=== PATIENT | male | born 1955 | race Caucasian/White ===

== ENCOUNTER 2016-08-31 22:13 | Emergency (ER) | payer SELFPAY ==
[2016-08-31 22:35] VITALS: O2SAT 98
--- NOTE | 2016-08-31 22:58 | ERPHSYRPT ---
- History of Present Illness Time Seen by Provider: 08/31/16 22:52 Source: patient Exam Limitations: no limitations Patient Subjective Stated Complaint: pt had to be pysically removed [place] where he was pounding on his "old ladies"door at the scene the pt had a pbt of 276 which requires medial clearance to go to penitentiary -pt is awake and alert and cooperative states he does not want anything done Triage Nursing Assessment: pt is awake and alert and able to answer questions - he is sitting on the side of the bed Physician History: This 60-year-old white male with history of high blood pressure he was found to be [facility] doors [facility] the [facility] and noted to have a blood alcohol of 276. Patient states he's been drinking all days he states he has not been using any illicit drugs he states he is not having any pain anywhere he states he has not injured himself. Patient is stating that he does not want any tests and he wants to be released from this hospital. Patient did have a breath alcohol of 276. Patient is alert oriented 3 he knows where he is who he is he has no focal deficits. Past medical history includes high blood pressure cyst on his tailbone. Social history includes alcohol use. Timing/Duration: today Severity: moderate Modifying Factors: Improves With: other (drinking all day.) Associated Symptoms: No nausea, No vomiting, No abdominal pain, No shortness of breath, No heartburn, No diaphoresis, No cough, No chills, No chest pain, No fever, No headaches, No loss of appetite, No malaise, No rash, No syncope, No seizure, No weakness Allergies/Adverse Reactions: Penicillins Allergy (Verified 08/31/16 22:44) Home Medications: No Reportable Medications [No Reported Medications] 08/31/16 [History] Hx Tetanus, Diphtheria Vaccination/Date Given: Yes Hx Influenza Vaccination/Date Given: No Hx Pneumococcal Vaccination/Date Given: No Immunizations Up to Date: No - Review of Systems Constitutional: No Fever, No Chills Eyes: No Symptoms Ears, Nose, & Throat: No Symptoms Respiratory: No Cough, No Dyspnea Cardiac: No Chest Pain, No Edema, No Syncope Abdominal/Gastrointestinal: No Abdominal Pain, No Nausea, No Vomiting, No Diarrhea Genitourinary Symptoms: No Dysuria Musculoskeletal: No Back Pain, No Neck Pain Skin: No Rash Neurological: No Symptoms Psychological: Alcohol Abuse, No Drug Abuse, No Anxiety, No Depression, No Suicidal Ideations, No Homicidal Ideations, No Emotional Lability, No Hallucinations, No Memory Loss, No Mood Changes Endocrine: No Symptoms All Other Systems: Reviewed and Negative - Past Medical History Pertinent Past Medical History: Yes Cardiac History: Hypertension - Past Surgical History Past Surgical History: Yes Other Surgical History: cyst on tailbone - Social History Smoking Status: Current every day smoker Exposure to second hand smoke: Yes Drug Use: none Patient Lives Alone: No - Nursing Vital Signs Nursing Vital Signs: Initial Vital Signs Temperature 97.7 F Temperature Source Oral Pulse Rate 120 Respiratory Rate 16 Blood Pressure [Right Arm] 190/100 Pain Intensity 0 - Physical Exam General Appearance: no apparent distress, alert Eye Exam: PERRL/EOMI, eyes nml inspection Ears, Nose, Throat Exam: normal ENT inspection, TMs normal, pharynx normal, moist mucous membranes Neck Exam: normal inspection, non-tender, supple, full range of motion Respiratory Exam: normal breath sounds, lungs clear, No respiratory distress Cardiovascular Exam: regular rate/rhythm, normal heart sounds, normal peripheral pulses Gastrointestinal/Abdomen Exam: soft, normal bowel sounds, No tenderness, No mass Back Exam: normal inspection, normal range of motion, No CVA tenderness, No vertebral tenderness Extremity Exam: normal inspection, normal range of motion, pelvis stable Neurologic Exam: alert, oriented x 3, cooperative, normal mood/affect, nml cerebellar function, nml station & gait, sensation nml, No motor deficits Skin Exam: normal color Lymphatic Exam: No adenopathy SpO2 Interpretation: normal (98%) SpO2: 98 Oxygen Delivery: Room Air - Course Nursing assessment & vital signs reviewed: Yes - Progress Progress: improved Progress Note: 08/31/16 22:55 This is a 60-year-old white male with history of high blood pressure he states he's been drinking all days he was apparently pounding on doors [place] the [place] he was found to have a breath alcohol of 276. Patient is in no apparent distress he is alert he is oriented 3. He states he has no pain anywhere he does not want any further evaluation. Will go ahead and discharge patient to police custody. - Departure Time of Disposition: 22:56 Departure Disposition: Home (patient released to police custody) Clinical Impression: Alcohol intoxication Qualifiers: Complication of substance-induced condition: uncomplicated Qualified Code(s): F10.120 - Alcohol abuse with intoxication, uncomplicated Condition: Fair Critical Care Time: No Instructions: Alcohol Abuse and Alcoholism Additional Instructions: Return home. Plenty of fluids. Follow-up with your family doctor. Return for acute distress or for severe symptoms. He should have your blood pressure checked in the next several weeks as it was elevated today.
[2016-09-01 01:36] VITALS: BP 130/100; PULSE 100
== END 2016-08-31 23:17 | disposition home or self-care (01) ==
LOC: ED 22:13
DX: F10.120 Alcohol abuse with intoxication, uncomplicated (principal)
CPT/HCPCS: 99281

== ENCOUNTER 2018-04-11 07:58 | Emergency (ER) | payer OTHER ==
[2018-04-11] MEDS ORDERED: BENADRYL 50 MG/ML ONE (08:10)
[2018-04-11] MEDS ORDERED: EPINEPHRINE ABBOJECT 1 MG ONE (08:10)
[2018-04-11] MEDS ORDERED: Sodium Chloride 0.9% 1000 ML 1,000 ML ONE ×2 (08:10→12:40)
[2018-04-11] MEDS ORDERED: EPINEPHRINE 1MG/ML AMP IM ONE ×2 (08:11→11:59)
[2018-04-11] MEDS ORDERED: BENADRYL 50 MG/ML IV ONE (08:12)
[2018-04-11] MEDS ORDERED: Pepcid 20 MG VIAL IV ONE ×2 (08:13→08:28)
[2018-04-11] MEDS ORDERED: solu-MEDROL 125 MG IV ONE ×2 (08:14→10:15)
[2018-04-11] MEDS ORDERED: EPINEPHRINE 1MG/ML AMP ONE ×2 (08:19→11:53)
[2018-04-11] MEDS ORDERED: solu-MEDROL 125 MG ONE ×2 (08:28→10:18)
[2018-04-11] MEDS ORDERED: Sodium Chloride 0.9% 1000 ML 1,000 ML IV SCH (08:30)
--- NOTE | 2018-04-11 08:45 | ERPHSYRPT ---
- History of Present Illness Time Seen by Provider: 04/11/18 08:10 Source: patient, family Patient Subjective Stated Complaint: Pt states "I woke up at 5 am like this." Triage Nursing Assessment: Pt alert and oriented X 3, skin pwd. Pt ambulates with an upright steady gait, able to speak in clear full sentences. PT in no apparent respiratory distress. The left side of pt face and lips are extremely swollen. Physician History: 62 y/o white male with h/o htn presents with sudden onset of swelling of left face and lips this am. no respiratory issues and no stridor. pt is on lisinopril. occurred one other time in the past but resolved on its own. no rash and no itching. no known allergies. no known new exposures. Timing/Duration: today Severity: moderate Associated Symptoms: No nausea, No vomiting, No abdominal pain, No cough Allergies/Adverse Reactions: No Known Drug Allergies Allergy (Unverified 04/11/18 08:15) Home Medications: Lisinopril [Zestril] 10 mg PO DAILY 04/11/18 [History] Hx Tetanus, Diphtheria Vaccination/Date Given: No Hx Influenza Vaccination/Date Given: No Hx Pneumococcal Vaccination/Date Given: No Immunizations Up to Date: Yes - Review of Systems Constitutional: No Symptoms Eyes: No Symptoms Ears, Nose, & Throat: Mouth Swelling, Other (facial and lip swelling), No Nose Congestion, No Nose Discharge Respiratory: No Symptoms, No Cough, No Dyspnea, No Stridor, No Wheezing Cardiac: No Symptoms, No Chest Pain, No Palpitations, No Syncope Abdominal/Gastrointestinal: No Symptoms, No Abdominal Pain, No Nausea, No Vomiting Genitourinary Symptoms: No Symptoms, No Dysuria, No Frequency, No Hematuria Musculoskeletal: No Symptoms Skin: No Symptoms Neurological: No Symptoms Psychological: No Symptoms Endocrine: No Symptoms Hematologic/Lymphatic: No Symptoms Immunological/Allergic: No Symptoms All Other Systems: Reviewed and Negative - Past Medical History Pertinent Past Medical History: Yes Neurological History: No Pertinent History ENT History: No Pertinent History Cardiac History: Hypertension Respiratory History: No Pertinent History Endocrine Medical History: No Pertinent History Musculoskeletal History: No Pertinent History GI Medical History: No Pertinent History History: No Pertinent History Psycho-Social History: No Pertinent History Male Reproductive Disorders: No Pertinent History - Past Surgical History Past Surgical History: Yes Neuro Surgical History: No Pertinent History Cardiac: No Pertinent History Respiratory: No Pertinent History Gastrointestinal: No Pertinent History Genitourinary: No Pertinent History Musculoskeletal: No Pertinent History Male Surgical History: No Pertinent History Other Surgical History: cyst on tailbone - Social History Smoking Status: Current every day smoker How long have you smoked: years Exposure to second hand smoke: Yes Drug Use: none Patient Lives Alone: No - Nursing Vital Signs Nursing Vital Signs: Initial Vital Signs Temperature 98.8 F 04/11/18 08:03 Pulse Rate 100 H 04/11/18 08:03 Respiratory Rate 04/11/18 08:03 Blood Pressure 155/103 04/11/18 08:03 O2 Sat by Pulse Oximetry 100 04/11/18 08:03 Pain Scale Pain Intensity 0 - Physical Exam General Appearance: mild distress, alert, anxiety Eye Exam: PERRL/EOMI, eyes nml inspection Ears, Nose, Throat Exam: tonsillar exudate, other (swelling and edematous left side of face including left side of lips.) Neck Exam: normal inspection, non-tender, supple, other (no stridor) Respiratory Exam: normal breath sounds, lungs clear, airway intact, No chest tenderness, No respiratory distress, No accessory muscle use, No rhonchi, No wheezing, No stridor Cardiovascular Exam: regular rate/rhythm, normal heart sounds, normal peripheral pulses Gastrointestinal/Abdomen Exam: soft, normal bowel sounds, No tenderness, No guarding Rectal Exam: not done Back Exam: normal inspection, normal range of motion, No CVA tenderness, No vertebral tenderness Extremity Exam: normal inspection, normal range of motion, pelvis stable Neurologic Exam: alert, oriented x 3, cooperative, head of science II-XII nml as tested Skin Exam: normal color, warm Lymphatic Exam: No adenopathy SpO2 Interpretation: normal SpO2: 100 Oxygen Delivery: Room Air - Course Nursing assessment & vital signs reviewed: Yes Ordered Tests: Active Orders 24 hr Category Date Time Status IV Insertion STAT Care 04/11/18 08:13 Active Medication Summary Generic Name Dose Route Start Last Admin Trade Name Freq PRN Reason Stop Dose Admin Sodium Chloride 1,000 mls @ 100 mls/hr 04/11/18 08:30 04/11/18 08:22 Sodium Chloride 0.9% 1000 Ml IV 05/11/18 08:29 100 mls/hr .Q10H DASHA Administration Discontinued Medications Generic Name Dose Route Start Last Admin Trade Name Vivian PRN Reason Stop Dose Admin Diphenhydramine HCl Confirm 04/11/18 08:10 Benadryl 50 Mg/Ml Administered 04/11/18 08:11 Dose 50 mg .ROUTE .STK-MED ONE Diphenhydramine HCl 50 mg 04/11/18 08:12 04/11/18 08:19 Benadryl 50 Mg/Ml IV 04/11/18 08:13 50 mg STAT ONE Administration Epinephrine HCl Confirm 04/11/18 08:10 Epinephrine Abboject 1 Mg Administered 04/11/18 08:11 Dose 1 mg .ROUTE .STK-MED ONE Epinephrine HCl 0.3 mg 04/11/18 08:11 04/11/18 08:21 Epinephrine 1mg/Ml Amp IM 04/11/18 08:12 0.3 mg STAT ONE Administration Epinephrine HCl Confirm 04/11/18 08:19 Epinephrine 1mg/Ml Amp Administered 04/11/18 08:20 Dose 1 mg .ROUTE .STK-MED ONE Famotidine 40 mg 04/11/18 08:13 04/11/18 08:29 Pepcid 20 Mg Vial IV 04/11/18 08:14 40 mg STAT ONE Administration Famotidine Confirm 04/11/18 08:28 Pepcid 20 Mg Vial Administered 04/11/18 08:29 Dose 40 mg IV .STK-MED ONE Sodium Chloride Confirm 04/11/18 08:10 Sodium Chloride 0.9% 1000 Ml Administered 04/11/18 08:11 Dose 1,000 mls @ ud .ROUTE .STK-MED ONE Methylprednisolone Sodium Succinate 125 mg 04/11/18 08:14 04/11/18 08:29 Solu-Medrol 125 Mg IV 04/11/18 08:15 125 mg STAT ONE Administration Methylprednisolone Sodium Succinate Confirm 04/11/18 08:28 Solu-Medrol 125 Mg Administered 04/11/18 08:29 Dose 125 mg .ROUTE .STK-MED ONE - Progress Progress: improved Counseled pt/family regarding: diagnosis, need for follow-up - Departure Time of Disposition: 08:52 Departure Disposition: Home Clinical Impression: Angioedema of lips Condition: Stable Critical Care Time: No Referrals: LITA HAYES, GENARO [Primary Care Provider] - Additional Instructions: add benadryl 25mg orally 3 times daily for 4 days. follow up with your primary doctor today to discuss your Lisinopril medications Prescriptions: Prednisone 10 mg [Deltasone 10 mg] 10 mg PO TID #12 tablet Ranitidine HCl [Zantac] 150 mg PO BID #10 tablet
[2018-04-11 12:15] LABS: BASOPHIL % 0.4 % (0.0-0.4); Basophil (Absolute #) 0.02 (0-0.4); Eosinophil (Absolute #) 0.05 (0-0.5); Granulocyte Absolute (ANC) 2.97 (1.4-6.9); Granulocytes % 59.6 % (36.0-66.0); Hematocrit 35.9 % (42-50); Hemoglobin 13.2 gm/dl (12.5-18.0); Lymphocyte (Absolute #) 1.17 (1.0-4.6); Lymphocytes % 23.4 % (24.0-44.0); Mean Corpuscular Hemoglobin 37.5 pg (26-32); Mean Corpuscular Hgb Concent. 36.8 g/dl (32-36); Mean Platelet Volume 10.7 fl (6-9.5); Monocyte (Absolute #) 0.78 (0.0-1.3); Monocytes % 15.6 % (0.0-12.0); Platelet Count 130 K/mm3 (150-450); Red Blood Count 3.52 M/mm3 (4.1-5.6); Red Cell Distribution Width 13.8 % (11.5-14.0)
[2018-04-11] MEDS ORDERED: Versed 50 MG/ 10 Ml MDV*** 50 MG in Sodium Chloride 0.9% 250 ML 240 ML IV PRN (12:20)
[2018-04-11] MEDS ORDERED: VERSED 5 MG/5 ML IV ONE ×2 (12:31→12:32)
[2018-04-11] MEDS ORDERED: Quelicin Fliptop 200 MG/10 ML IV ONE (12:32)
[2018-04-11 12:33] LABS: ALBUMIN 4.6 g/dL (3.5-5.0); ANION GAP 15.7 MEQ/L (5-15); BILIRUBIN,TOTAL 0.9 mg/dL (0.2-1.3); Calcium 9.7 mg/dL (8.4-10.2); Creatinine 1 1.42 mg/dL (0.66-1.25); Potassium 4.3 mmol/L (3.5-5.1); Total Protein 7.9 g/dL (6.3-8.2)
[2018-04-11] MEDS ORDERED: Zemuron 100 MG/10 ML IV ONE ×2 (12:33→13:44)
[2018-04-11 12:47] LABS: A-aADO2 84; ABG HEMOGLOBIN 13.4; ABG POTASSIUM 4.3 (3.5-5.1); ABG SITE RIGHT RADIAL; ALLEN TEST OK? YES; ARTERIAL BLD GAS O2 SATURATION 100.5 % (95-100); ARTERIAL BLD GAS TIDAL VOLUME 550 cc; ARTERIAL BLOOD GAS BASE EXCESS -4.8 (-2.0-2.0); ARTERIAL BLOOD GAS FIO2 100 %; ARTERIAL BLOOD GAS PCO2 44 mmHg (35-45); ARTERIAL BLOOD GAS PEEP 5 cmH2O; ARTERIAL BLOOD GAS PO2 574 mmHg (75-100); CARBOXYHEMOGLOBIN 2.4 % THgb (0.0-6.9); HCO3- 21.6 (22-28); HGB O2 SAT 96.8 g/dF (94-100); Methhemoglobin 1.2 % (1.4-1.5); paO2 pAO1 0.87
--- NOTE | 2018-04-11 12:50 | XRAY ---
Indication: Tube placement. Comparison: None Portable chest demonstrates endotracheal tube tip 5 cm above the dariusz and NG tube tip in the distal esophagus just above the GE junction. Remaining heart and lungs normal with incidental calcified granulomas. Bony thorax intact with mild degenerative changes.
[2018-04-11 13:56] VITALS: BP 146/90; PULSE 117; O2SAT 99
[2018-04-11 14:17] LABS: Slide Review 1 YES
== END 2018-04-11 13:58 | disposition short-term general hospital (02) ==
LOC: ED 07:58
DX: T78.3XXA Angioneurotic edema, initial encounter (principal); Z79.899 Other long term (current) drug therapy
CPT/HCPCS: 31500; 36000; 36415; 36600; 51702; 71045; 80053; 82375; 82803; 85025; 86160; 94002; 94799; 96372; 96374; 96375; 96376; 99285; 99291; 99292; J0171; J0330; J1200; J2250; J2930

== ENCOUNTER 2021-06-25 14:15 | Emergency (ER) | payer MEDICARE ==
[2021-06-25 15:11] LABS: Absolute Neutrophil Ct (ANC) 6.78 (1.4-6.9); Basophil (Absolute #) 0.04 (0-0.4); Eosinophil % 1.5 % (0.00-5.0); Eosinophil (Absolute #) 0.14 (0-0.5); Hematocrit 26.6 % (42-50); Hemoglobin 8.1 gm/dl (12.5-18.0); Lymphocyte (Absolute #) 1.31 (1.0-4.6); Lymphocytes % 13.8 % (24.0-44.0); Mean Cell Volume 77.6 fl (78-100); Mean Corpuscular Hemoglobin 23.6 pg (26-32); Mean Corpuscular Hgb Concent. 30.5 g/dl (32-36); Mean Platelet Volume 9.2 fl (7.5-11.0); Monocytes % 12.7 % (0.0-12.0); Neutrophil % 71.6 % (36.0-66.0); Platelet Count 504 K/mm3 (150-450); Red Blood Count 3.43 M/mm3 (4.1-5.6); Red Cell Distribution Width 20.6 % (11.5-14.0); White Blood Count 9.5 K/mm3 (4.0-10.5)
[2021-06-25 15:21] LABS: ALBUMIN 3.1 g/dL (3.5-5.0); ALKALINE PHOSPHATASE 382 U/L (38-126); ANION GAP 16.5 MEQ/L (5-15); BLOOD UREA NITROGEN 8 mg/dL (9-20); CHLORIDE 102 mmol/L (98-107); Calcium 8.1 mg/dL (8.4-10.2); Carbon Dioxide 20 mmol/L (22-30); Creatinine 1 1.11 mg/dL (0.66-1.25); EST GLOMERULAR FILTRATION RATE > 60.0 ML/MIN; Glucose 142 mg/dL (74-106); LIPASE 271 U/L (23-300); Potassium 3.1 mmol/L (3.5-5.1); SGOT/AST 71 U/L (17-59); SGPT/ALT 13 U/L (0-50); SODIUM 136 mmol/L (137-145); Total Protein 6.8 g/dL (6.3-8.2)
--- NOTE | 2021-06-25 15:24 | ERPHSYRPT ---
- History of Present Illness Time Seen by Provider: 06/25/21 14:30 Historian: patient Exam Limitations: no limitations Patient Subjective Stated Complaint: Pt states "My head hurts, my bellyhurts and I cannot pee." Triage Nursing Assessment: Pt presented alert and oriented ax 3, skin pwd Pt ambulates with a slow gait, able to speak in clear full setences. Pt abdomen is distended, firm and tender Physician History: Patient is a 65-year-old male with a history of alcoholism. Patient drinks half a pint to a pint of whiskey per day. Patient states he has been doing this "all my life". Patient states that his abdomen has gotten progressively distended over the past month. Urine output has decreased over the past 2 days. No trauma. No fever. No history of liver dysfunction. Symptoms are progressive. Symptoms are moderate in intensity. No specific worsening or improving factors. Patient's abdominal pain described as a vague pressure sensation that is generalized. No focal or differentiate abdominal pain. Patient has a significant cardiovascular history for which she sees Dr. Cynthia Kaplan Father the referred patient to our ED today for evaluation of his progressive abdominal distention and decreased urine output. Timing/Duration: week(s) (4 weeks.) Activities at Onset: none Quality: aching, pressure Abdominal Pain Onset Location: generalized abdomen Pain Radiation: no radiation Severity of Pain-Max: moderate Severity of Pain-Current: mild Modifying Factors: Improves With: nothing Associated Symptoms: other (Decreased urine output.) Previous symptoms: no prior history Allergies/Adverse Reactions: lisinopril Allergy (Severe, Verified 06/25/21 14:32) Swelling Penicillins Allergy (Severe, Verified 06/25/21 14:32) Swelling Home Medications: Amlodipine Besylate 10 mg PO DAILY 06/25/21 [History] Carvedilol 3.125 mg [Coreg 3.125 MG] 3.125 mg PO BID 06/25/21 [History] Clopidogrel Bisulfate 75 mg [PLAVIX 75 MG Tablet] 75 mg PO DAILY 06/25/21 [History] Rivaroxaban [Xarelto] 2.5 mg PO DAILY 06/25/21 [History] Hx Tetanus, Diphtheria Vaccination/Date Given: No Hx Influenza Vaccination/Date Given: No Hx Pneumococcal Vaccination/Date Given: No Immunizations Up to Date: Yes Travel Risk - International Travel Have you traveled outside of the country in past 3 weeks: No - Coronavirus Screening Are you exhibiting any of the following symptoms?: No Close contact with a COVID-19 positive Pt in past 14-21 Days: No - Vaccine Status Have you recieved a Covid-19 vaccination: No - Review of Systems Constitutional: No Symptoms, No Fever, No Chills Eyes: No Symptoms Ears, Nose, & Throat: No Symptoms Respiratory: No Symptoms, No Cough, No Dyspnea Cardiac: No Symptoms, No Chest Pain, No Edema, No Syncope Abdominal/Gastrointestinal: No Symptoms, No Abdominal Pain, No Nausea, No Vomiting, No Diarrhea Genitourinary Symptoms: No Symptoms, No Dysuria Musculoskeletal: No Symptoms, No Back Pain, No Neck Pain Skin: No Symptoms, No Rash Neurological: No Symptoms, No Dizziness, No Focal Weakness, No Sensory Changes Psychological: No Symptoms Endocrine: No Symptoms Hematologic/Lymphatic: No Symptoms Immunological/Allergic: No Symptoms All Other Systems: Reviewed and Negative - Past Medical History Pertinent Past Medical History: Yes Neurological History: No Pertinent History ENT History: No Pertinent History Cardiac History: Hypertension Respiratory History: Bronchitis, Other Endocrine Medical History: No Pertinent History Musculoskeletal History: Fractures GI Medical History: No Pertinent History History: No Pertinent History Psycho-Social History: No Pertinent History Male Reproductive Disorders: No Pertinent History Other Medical History: HX OF FX TOES. SX - PILONIDAL CYST. HX OF HTN. WAS ON MEDS WHICH PATIENT STATES THE ANGIOEDEMA WAS A RESULT. SINCE BEING HOME FROM HOSPITAL AND OFF MEDS BLOOD PRESSURE HAS BEEN FINE - 120/80 AT [facility]. - Past Surgical History Past Surgical History: Yes Neuro Surgical History: No Pertinent History Cardiac: No Pertinent History Respiratory: No Pertinent History Gastrointestinal: No Pertinent History Genitourinary: No Pertinent History Musculoskeletal: No Pertinent History Male Surgical History: No Pertinent History Other Surgical History: cyst on tailbone - Social History Smoking Status: Current every day smoker How long have you smoked: years Exposure to second hand smoke: Yes Drug Use: marijuana Patient Lives Alone: No - Nursing Vital Signs Nursing Vital Signs: Initial Vital Signs Temperature 97.9 F 06/25/21 14:20 Pulse Rate 97 H 06/25/21 14:20 Respiratory Rate 20 06/25/21 14:20 Blood Pressure 127/89 06/25/21 14:20 O2 Sat by Pulse Oximetry 100 06/25/21 14:20 Pain Scale Pain Intensity 2 - Physical Exam General Appearance: no apparent distress, alert Eye Exam: PERRL/EOMI, eyes nml inspection Ears, Nose, Throat Exam: normal ENT inspection, TMs normal, pharynx normal, moist mucous membranes Neck Exam: normal inspection, non-tender, supple, full range of motion Respiratory Exam: normal breath sounds, chest tenderness, lungs clear, airway intact, No respiratory distress Cardiovascular Exam: regular rate/rhythm, normal heart sounds, normal peripheral pulses Gastrointestinal/Abdomen Exam: soft, tenderness, distention, No mass, No guarding, No pulsatile mass, No hernia Back Exam: normal inspection, normal range of motion, No CVA tenderness, No vertebral tenderness Extremity Exam: normal inspection, normal range of motion, pelvis stable Neurologic Exam: alert, oriented x 3, cooperative, normal mood/affect, nml cerebellar function, sensation nml, No motor deficits Skin Exam: normal color, warm, dry Lymphatic Exam: No adenopathy SpO2 Interpretation: normal SpO2: 100 O2 Delivery: Room Air - Course Nursing assessment & vital signs reviewed: Yes - CT Exams Abdomen/Pelvis CT Interpretation: Tele-radiologist Report (The liver appears relatively small. Hepatic surface worrisome for diffuse hepatocellular disease. Scattered ascites, hepatic mass both kidneys appear relatively small Marked atherosclerotic vascular calcifications.) Ordered Tests: Active Orders 24 hr Category Date Time Status Shah [Catheter-Colwich Shah] STAT Care 06/25/21 14:38 Active IV Insertion STAT Care 06/25/21 14:51 Active ABDOMEN AND PELVIS W CONTRAST [CT] Stat Exams 06/25/21 15:54 Completed CBC W DIFF Stat Lab 06/25/21 14:30 Completed CMP Stat Lab 06/25/21 14:30 Completed CULTURE,URINE Stat Lab 06/25/21 14:51 Received LIPASE Stat Lab 06/25/21 14:30 Completed PROTIME WITH INR Stat Lab 06/25/21 14:30 Completed TROPONIN Q3H Lab 06/25/21 14:30 Completed TROPONIN Q3H Lab 06/25/21 18:46 Completed TROPONIN Q3H Lab 06/25/21 21:00 Ordered TROPONIN Q3H Lab 06/26/21 00:00 Ordered TROPONIN Q3H Lab 06/26/21 03:00 Ordered UA W/RFX UR CULTURE Stat Lab 06/25/21 14:51 Completed Medication Summary Generic Name Dose Route Start Last Admin Trade Name Vivian PRN Reason Stop Dose Admin Ciprofloxacin 500 mg 06/25/21 22:00 06/25/21 18:02 Ciprofloxacin 500 Mg Tablet PO 07/25/21 21:59 500 mg BID DASHA Administration Discontinued Medications Generic Name Dose Route Start Last Admin Trade Name Vivian PRN Reason Stop Dose Admin Potassium Chloride 40 meq 06/25/21 17:37 06/25/21 17:44 Potassium Chloride 10 Meq Tablet PO 06/25/21 17:38 40 meq STAT ONE Administration Potassium Chloride Confirm 06/25/21 17:42 Potassium Chloride 10 Meq Tablet Administered 06/25/21 17:43 Dose 40 meq PO .STRodos [employer] ONE Lab/Rad Data: Laboratory Result Diagrams 06/25/21 14:30 06/25/21 14:30 Laboratory Results 06/25/21 06/25/21 06/25/21 Range/Units 18:46 14:51 14:30 WBC (4.0-10.5) K/mm3 RBC (4.1-5.6) M/mm3 Hgb (12.5-18.0) gm/dl Hct (42-50) % MCV (78-100) fl MCH (26-32) pg MCHC (32-36) g/dl RDW (11.5-14.0) % Plt Count (150-450) K/mm3 MPV (7.5-11.0) fl Gran % (36.0-66.0) % Eos # (Auto) (0-0.5) Absolute Lymphs (auto) (1.0-4.6) Absolute Monos (auto) (0.0-1.3) Lymphocytes % (24.0-44.0) % Monocytes % (0.0-12.0) % Eosinophils % (0.00-5.0) % Basophils % (0.0-0.4) % Absolute Granulocytes (1.4-6.9) Basophils # (0-0.4) PT 15.5 H (9.4-12.5) SECONDS INR 1.31 (0.8-3.0) Sodium (137-145) mmol/L Potassium (3.5-5.1) mmol/L Chloride (98-107) mmol/L Carbon Dioxide (22-30) mmol/L Anion Gap (5-15) MEQ/L BUN (9-20) mg/dL Creatinine (0.66-1.25) mg/dL Estimated GFR ML/MIN Glucose (74-106) mg/dL Calcium (8.4-10.2) mg/dL Total Bilirubin (0.2-1.3) mg/dL AST (17-59) U/L ALT (0-50) U/L Alkaline Phosphatase (38-126) U/L Troponin I < 0.012 (0.000-0.034) ng/mL Serum Total Protein (6.3-8.2) g/dL Albumin (3.5-5.0) g/dL Lipase (23-300) U/L Urine Color YELLOW (YELLOW) Urine Appearance SLIGHTLY CLOUDY (CLEAR) Urine pH 6.0 (5-6) Ur Specific [place] 1.016 (1.005-1.025) Urine Protein 30 (Negative) Urine Ketones TRACE (NEGATIVE) Urine Blood MODERATE (0-5) [place]/ul Urine Nitrite NEGATIVE (NEGATIVE) Urine Bilirubin NEGATIVE (NEGATIVE) Urine Urobilinogen 2 (0-1) mg/dL Ur Leukocyte Esterase MODERATE (NEGATIVE) Urine WBC (Auto) 51-100 (0-5) /HPF Urine RBC (Auto) >101 (0-2) /HPF U Hyaline Cast (Auto) 6-10 (0-2) /LPF U Epithel Cells (Auto) NONE (FEW) /HPF Urine Bacteria (Auto) MODERATE (NEGATIVE) /HPF Urine Mucus (Auto) SLIGHT (NEGATIVE) /HPF Urine Culture Reflexed YES (NO) Urine Glucose NEGATIVE (NEGATIVE) mg/dL 06/25/21 06/25/21 06/25/21 Range/Units 14:30 14:30 14:30 WBC 9.5 (4.0-10.5) K/mm3 RBC 3.43 L (4.1-5.6) M/mm3 Hgb 8.1 L (12.5-18.0) gm/dl Hct 26.6 L (42-50) % MCV 77.6 L (78-100) fl MCH 23.6 L (26-32) pg MCHC 30.5 L (32-36) g/dl RDW 20.6 H (11.5-14.0) % Plt Count 504 H (150-450) K/mm3 MPV 9.2 (7.5-11.0) fl Gran % 71.6 H (36.0-66.0) % Eos # (Auto) 0.14 (0-0.5) Absolute Lymphs (auto) 1.31 (1.0-4.6) Absolute Monos (auto) 1.20 (0.0-1.3) Lymphocytes % 13.8 L (24.0-44.0) % Monocytes % 12.7 H (0.0-12.0) % Eosinophils % 1.5 (0.00-5.0) % Basophils % 0.4 (0.0-0.4) % Absolute Granulocytes 6.78 (1.4-6.9) Basophils # 0.04 (0-0.4) PT (9.4-12.5) SECONDS INR (0.8-3.0) Sodium 136 L (137-145) mmol/L Potassium 3.1 L (3.5-5.1) mmol/L Chloride 102 (98-107) mmol/L Carbon Dioxide 20 L (22-30) mmol/L Anion Gap 16.5 H (5-15) MEQ/L BUN 8 L (9-20) mg/dL Creatinine 1.11 (0.66-1.25) mg/dL Estimated GFR > 60.0 ML/MIN Glucose 142 H (74-106) mg/dL Calcium 8.1 L (8.4-10.2) mg/dL Total Bilirubin 0.50 (0.2-1.3) mg/dL AST 71 H (17-59) U/L ALT 13 (0-50) U/L Alkaline Phosphatase 382 H (38-126) U/L Troponin I < 0.012 (0.000-0.034) ng/mL Serum Total Protein 6.8 (6.3-8.2) g/dL Albumin 3.1 L (3.5-5.0) g/dL Lipase 271 (23-300) U/L Urine Color (YELLOW) Urine Appearance (CLEAR) Urine pH (5-6) Ur Specific [place] (1.005-1.025) Urine Protein (Negative) Urine Ketones (NEGATIVE) Urine Blood (0-5) [place]/ul Urine Nitrite (NEGATIVE) Urine Bilirubin (NEGATIVE) Urine Urobilinogen (0-1) mg/dL Ur Leukocyte Esterase (NEGATIVE) Urine WBC (Auto) (0-5) /HPF Urine RBC (Auto) (0-2) /HPF U Hyaline Cast (Auto) (0-2) /LPF U Epithel Cells (Auto) (FEW) /HPF Urine Bacteria (Auto) (NEGATIVE) /HPF Urine Mucus (Auto) (NEGATIVE) /HPF Urine Culture Reflexed (NO) Urine Glucose (NEGATIVE) mg/dL - Progress Progress: improved Progress Note: Case discussed with Dr. Campos who in light of patient's liver mass and new onset cirrhosis advises transfer to a facility that has gastroenterology and oncology. 06/25/21 17:[address] Michelle [place] [facility]. Plan of care discussed with patient. He agrees to [place] [facility] evaluation and treatment. 06/25/21 18:00 Case discussed with hospitalist at [facility]. We also discussed the case with [facility]. Dr. Fabricio Portillo general surgeon covering GI service. Dr. Portillo defers transfer to hospitalist. We are awaiting return call from hospitalist. Portions of this note were created with voice recognition technology. There may be grammatical, spelling, punctuation or sound alike errors 06/25/21 18:24 Discussed with .: Brian Will see patient in: other Counseled pt/family regarding: lab results, diagnosis, rad results - Departure Departure Disposition: Transfer Clinical Impression: Retrocardiac hiatal hernia, Hepatic granuloma, Liver cirrhosis, Splenic granulomas, Abdominal ascites, Prostate gland calcification, Liver mass, UTI (urinary tract infection), Hypokalemia, Hypocalcemia, Microcytic anemia, Thrombocytosis, Urinary retention Condition: Stable Critical Care Time: No Referrals: LITA HAYES NP [Primary Care Provider] - Follow up/PCP as directed
[2021-06-25 15:37] LABS: INR 1.31 (0.8-3.0); PROTIME 15.5 SECONDS (9.4-12.5)
[2021-06-25 15:48] LABS: Appearance SLIGHTLY CLOUDY (CLEAR); Bacteria MODERATE /HPF (NEGATIVE); Bilirubin NEGATIVE (NEGATIVE); Blood MODERATE Ery/ul (0-5); Glucose NEGATIVE (NEGATIVE); Ketones TRACE (NEGATIVE); Leukocyte Esterase MODERATE (NEGATIVE); Mucus SLIGHT /HPF (NEGATIVE); Nitrite NEGATIVE (NEGATIVE); Protein,Urine Dip 30 (Negative); Specific Gravity 1.016 (1.005-1.025); Urobilinogen 2 mg/dL (0-1); WBC 51-100 /HPF (0-5)
[2021-06-25 15:49] LABS: RBC >101 /HPF (0-2)
--- NOTE | 2021-06-25 17:03 | XRAY ---
Exam: CT of the abdomen and pelvis with IV contrast from 06/25/2021. CTDI: 3.63 mGy Comparison: None. Indication: 65-year-old male with abdominal distention/bloating 1 month; diarrhea. Technique: Post-IV contrast axial images were obtained through the abdomen and pelvis during automated injection of 80 ML's of Isovue 370 contrast material. Reconstructed coronal and sagittal images were created and reviewed. Findings: The visualized lung bases appear clear. There is equivocal evidence of a minimal retrocardiac hiatal hernia with mild concentric wall thickening near the gastroesophageal junction. See axial image #15. The liver appears relatively small. A few scattered hepatic calcified granulomas are seen. There is minor surface irregularity of the liver which may reflect hepatocellular disease such as cirrhosis. Just lateral to the fundus of the gallbladder on axial image #28, there is a subtle oval-shaped region of decreased attenuation which measures +69 Hounsfield units. On sagittal image #37, this measures about 3.3 cm x 2.4 cm in cross section. The attenuation value does not suggest that this represents a simple cyst. This might represent a regenerating nodule. However, several other small space-occupying hepatic mass including malignancy should be considered. The gallbladder is not enlarged. No gallbladder wall thickening or dense calcifications are seen within the gallbladder lumen. The spleen is small and remarkable for multiple calcified splenic granulomas. No significant abnormality of the pancreas or adrenal glands is seen. The right kidney measures about 9.0 cm in length on coronal image #103, and the left kidney measures about 8.9 cm in length on coronal image #99. This appears to be at the lower limits of normal. Both kidneys function on delayed images. No solid renal mass or hydronephrosis is seen. Dense atherosclerotic vascular calcification is seen within the distal abdominal aorta and the iliac arteries. No abdominal aortic aneurysm is seen. There appears to be a bifemoral bypass crossing across the anterior aspect of the lower pelvis. Some surgical clips are also seen within the left groin. I see no evidence of free intraperitoneal air. However, the significant finding is the presence of a moderate to marked amount of scattered ascites within both upper outer quadrants, both paracolic gutters, Morison's pouch on the right, and throughout the pelvis. The bowel does not appear distended. The seminal vesicles appear unremarkable. Calcification within the central aspect of the prostate gland is seen. The urinary bladder is decompressed by a urinary Shah catheter with balloon in the projection of a collapsed urinary bladder. No other pelvic mass or abnormal pelvic lymphadenopathy is seen. The skeleton reveals no acute fracture or aggressive bone process. Mild diffuse degenerative changes are seen throughout the visualized thoracolumbar spine. Impression: 1. The liver appears relatively small and has an uneven hepatic surface worrisome for diffuse hepatocellular disease or cirrhosis. In addition, a moderate to marked amount of scattered ascites is seen throughout the abdomen and pelvis. 2. Within the anterior portion of the inferior aspect of the right hepatic lobe there is a subtle small low-attenuation density which may represent a hepatic mass. This does not represent a cyst. See above. 3. Both kidneys appear relatively small measuring roughly 9 cm in length each. However, both kidneys function. 4. Marked atherosclerotic vascular calcification is seen. I also see evidence of a femoral to femoral bypass graft coursing across the anterior aspect of the lower pelvis. A urinary Shah catheter with balloon is seen within a collapsed urinary bladder. 5. No other acute process is seen within the abdomen or pelvis.
[2021-06-25] MEDS ORDERED: Klor Con 10 MEQ PO ONE ×2 (17:37→17:42)
[2021-06-25] MEDS ORDERED: Cipro 500 MG ONE (18:01)
[2021-06-25 20:15] VITALS: BP 106/79; PULSE 96
[2021-06-25 20:28] VITALS: O2SAT 100
[2021-06-25] MEDS ORDERED: Cipro 500 MG PO SCH (22:00)
== END 2021-06-25 20:30 | disposition short-term general hospital (02) ==
LOC: ED 14:15
DX: N39.0 Urinary tract infection, site not specified (principal); R33.9 Retention of urine, unspecified; K44.9 Diaphragmatic hernia without obstruction or gangrene; K75.3 Granulomatous hepatitis, not elsewhere classified; K70.31 Alcoholic cirrhosis of liver with ascites; N42.0 Calculus of prostate; R16.0 Hepatomegaly, not elsewhere classified; E87.6 Hypokalemia; E83.51 Hypocalcemia; D50.9 Iron deficiency anemia, unspecified; D75.839 Thrombocytosis, unspecified; Z79.01 Long term (current) use of anticoagulants; I10 Essential (primary) hypertension; Z72.0 Tobacco use
CPT/HCPCS: 36000; 36415; 51702; 74177; 80053; 81001; 83690; 84484; 85025; 85610; 87077; 87086; 87186; 99285; A9270-GY

== ENCOUNTER 2021-11-10 22:01 | Emergency (ER) | payer MEDICARE ==
[2021-11-10] MEDS ORDERED: Sodium Chloride 0.9% 1000 ML 1,000 ML IV SCH (22:30)
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
[2021-11-10 22:55] LABS: Appearance CLEAR (CLEAR); Bilirubin NEGATIVE (NEGATIVE); Dipstick done @ ? MAIN LAB; Glucose NEGATIVE (NEGATIVE); Ketones NEGATIVE (NEGATIVE); Nitrite NEGATIVE (NEGATIVE); Ph 6.5 (5-6); Protein,Urine Dip NEGATIVE (Negative); RBC NEGATIVE Ery/ul (0-5); Urobilinogen 0.2 mg/dL (0-1)
[2021-11-10] MEDS ORDERED: Sodium Chloride 0.9% 1000 ML 1,000 ML ONE (23:00)
[2021-11-10 23:17] LABS: WBC NONE SEEN /HPF (0-5)
[2021-11-10 23:18] LABS: Bacteria NONE SEEN /HPF (NEGATIVE); Urine Cultured Indicated? NO
[2021-11-10 23:20] LABS: Absolute Neutrophil Ct (ANC) 3.92 x10^3/uL (1.4-6.9); Basophil (Absolute #) 0.04 x10^3/uL (0-0.4); Eosinophil % 2.1 % (0.00-5.0); Eosinophil (Absolute #) 0.14 x10^3/uL (0-0.5); Hematocrit 27.1 % (42-50); Hemoglobin 8.2 g/dL (12.5-18.0); Lymphocyte (Absolute #) 1.89 x10^3/uL (1.0-4.6); Lymphocytes % 28.5 % (24.0-44.0); Mean Cell Volume 78.3 fL (78-100); Mean Corpuscular Hemoglobin 23.7 pg (26-32); Mean Corpuscular Hgb Concent. 30.3 g/dL (32-36); Mean Platelet Volume 8.9 fL (7.5-11.0); Monocyte (Absolute #) 0.62 x10^3/uL (0.0-1.3); Monocytes % 9.4 % (0.0-12.0); Neutrophil % 59.1 % (36.0-66.0); Platelet Count 149 x10^3/uL (150-450); Red Blood Count 3.46 x10^6/uL (4.1-5.6); White Blood Count 6.6 x10^3/uL (4.0-10.5)
[2021-11-10 23:41] LABS: ALBUMIN 3.5 g/dL (3.5-5.0); ALKALINE PHOSPHATASE 381 U/L (38-126); ANION GAP 18.5 MEQ/L (5-15); BLOOD UREA NITROGEN 11 mg/dL (9-20); CHLORIDE 107 mmol/L (98-107); Calcium 8.6 mg/dL (8.4-10.2); Carbon Dioxide 23 mmol/L (22-30); Creatinine 1 1.07 mg/dL (0.66-1.25); EST GLOMERULAR FILTRATION RATE > 60.0 ML/MIN; Glucose 92 mg/dL (74-106); Potassium 4.6 mmol/L (3.5-5.1); SGOT/AST 87 U/L (17-59); SGPT/ALT 21 U/L (0-50); SODIUM 145 mmol/L (137-145); Total Protein 7.4 g/dL (6.3-8.2)
[2021-11-11 00:07] VITALS: BP 119/84; PULSE 118
[2021-11-11 01:51] VITALS: O2SAT 100
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
== END 2021-11-11 01:40 | disposition left against medical advice (07) ==
LOC: ED 22:01
DX: F10.129 Alcohol abuse with intoxication, unspecified (principal); M48.02 Spinal stenosis, cervical region; M48.061 Spinal stenosis, lumbar region without neurogenic claudication; J32.8 Other chronic sinusitis; D69.6 Thrombocytopenia, unspecified; R74.8 Abnormal levels of other serum enzymes; S00.83XA Contusion of other part of head, initial encounter; S50.812A Abrasion of left forearm, initial encounter; W01.0XXA Fall on same level from slipping, tripping and stumbling without subsequent striking against object, initial encounter; I10 Essential (primary) hypertension; Z72.0 Tobacco use; Z79.01 Long term (current) use of anticoagulants; Z79.02 Long term (current) use of antithrombotics/antiplatelets; Z79.899 Other long term (current) drug therapy; Z28.310 Unvaccinated for COVID-19
CPT/HCPCS: 36000; 36415; 70450; 72125; 80053; 81015; 84484; 85025; 93005; 93041; 94760; 96374; 99284

== ENCOUNTER 2021-12-22 22:15 | Observation (INO) | payer MEDICARE ==
[2021-12-22] MEDS ORDERED: ZOFRAN ODT 4 MG PO ONE (22:26)
[2021-12-22] MEDS ORDERED: MORPHINE SULFATE 2 MG INJ IV ONE (22:26)
[2021-12-22] MEDS ORDERED: Sodium Chloride 0.9% 1000 ML 1,000 ML IV SCH (22:30)
[2021-12-22] MEDS ORDERED: Zofran 4 MG/2 ML VIAL IV ONE (22:31)
[2021-12-22] MEDS ORDERED: Zofran 4 MG/2 ML VIAL ONE (22:32)
[2021-12-22] MEDS ORDERED: MORPHINE SULFATE 2 MG INJ ONE (22:32)
[2021-12-22] MEDS ORDERED: Sodium Chloride 0.9% 1000 ML 1,000 ML ONE (22:32)
[2021-12-22 23:01] LABS: Absolute Neutrophil Ct (ANC) 4.53 x10^3/uL (1.4-6.9); Eosinophil % 2.3 % (0.00-5.0); Eosinophil (Absolute #) 0.17 x10^3/uL (0-0.5); Hematocrit 26.5 % (42-50); Hemoglobin 7.9 g/dL (12.5-18.0); Lymphocyte (Absolute #) 1.98 x10^3/uL (1.0-4.6); Lymphocytes % 26.3 % (24.0-44.0); Mean Cell Volume 83.9 fL (78-100); Mean Corpuscular Hgb Concent. 29.8 g/dL (32-36); Mean Platelet Volume 9.5 fL (7.5-11.0); Monocyte (Absolute #) 0.71 x10^3/uL (0.0-1.3); Monocytes % 9.4 % (0.0-12.0); Neutrophil % 60.3 % (36.0-66.0); Platelet Count 210 x10^3/uL (150-450); Red Blood Count 3.16 x10^6/uL (4.1-5.6); Red Cell Distribution Width 24.3 % (11.5-14.0); White Blood Count 7.5 x10^3/uL (4.0-10.5)
[2021-12-22 23:18] LABS: ALBUMIN 3.8 g/dL (3.5-5.0); ALKALINE PHOSPHATASE 466 U/L (38-126); BLOOD UREA NITROGEN 10 mg/dL (9-20); CHLORIDE 104 mmol/L (98-107); Calcium 8.8 mg/dL (8.4-10.2); Carbon Dioxide 19 mmol/L (22-30); Creatinine 1 1.13 mg/dL (0.66-1.25); EST GLOMERULAR FILTRATION RATE > 60.0 ML/MIN; ETHYL ALCOHOL 293 mg/dL (0-10); Glucose 104 mg/dL (74-106); LIPASE 231 U/L (23-300); SGOT/AST 112 U/L (17-59); SGPT/ALT 21 U/L (0-50); SODIUM 140 mmol/L (137-145); Total Protein 7.6 g/dL (6.3-8.2)
[2021-12-22 23:49] LABS: INFLUENZA A NEGATIVE (NEGATIVE); INFLUENZA B NEGATIVE (NEGATIVE); RESPIRATORY SYNCTIAL VIRUS NEGATIVE (Negative); SARS-CoV-2 Xpert Express NEGATIVE (NEGATIVE)
--- NOTE | 2021-12-23 00:07 | ERPHSYRPT ---
- History of Present Illness Time Seen by Provider: 12/22/21 22:30 Historian: patient Exam Limitations: no limitations Patient Subjective Stated Complaint: pt states he is feeling like hes been filling up with fluid for the last four days, states Maylin Hernandez, his provider, told him he should go to the ER. Pt states he doesnt have pain, but his abdomin is full of fluid. Triage Nursing Assessment: pt is alert and oriented, smells heavily of alcohol, pt states he is not in pain at this time but feels full. Physician History: Patient is a 66-year-old male with a history of cirrhosis presents to our ED for evaluation of distended abdomen. Patient believes he is filling up with ascitic fluid. He has no pain. No fever. Patient believes he needs a paracentesis. Patient states his abdomen has been full for approximately 4 days. No nausea or vomiting. No diarrhea. No rash. Patient smells of alcohol. He admits to drinking recently. Patient drinks whiskey daily. He denies alcohol withdrawal if he does not drink his whiskey. Symptoms are mild in intensity. No specific worsening improving factors. Patient declined pain medication. Patient is requesting a paracentesis. Patient voices no other complaints or concerns at this time. Portions of this note were created with voice recognition technology. There may be grammatical, spelling, punctuation or sound alike errors Timing/Duration: day(s) (4 days) Activities at Onset: none Quality: pressure Abdominal Pain Onset Location: generalized abdomen, other Pain Radiation: no radiation Severity of Pain-Max: moderate Severity of Pain-Current: mild Modifying Factors: Improves With: nothing Associated Symptoms: denies symptoms Previous symptoms: same symptoms as today Allergies/Adverse Reactions: lisinopril Allergy (Severe, Verified 12/22/21 22:29) Swelling Penicillins Allergy (Severe, Verified 12/22/21 22:29) Swelling Home Medications: Amlodipine Besylate 10 mg PO DAILY 06/25/21 [History] Carvedilol 3.125 mg [Coreg 3.125 MG] 3.125 mg PO BID 06/25/21 [History] Clopidogrel Bisulfate [PLAVIX 75 MG Tablet] 75 mg PO DAILY 06/25/21 [History] Rivaroxaban [Xarelto] 2.5 mg PO DAILY 06/25/21 [History] Hx Tetanus, Diphtheria Vaccination/Date Given: Yes Hx Influenza Vaccination/Date Given: No Hx Pneumococcal Vaccination/Date Given: No Travel Risk - International Travel Have you traveled outside of the country in past 3 weeks: No - Coronavirus Screening Are you exhibiting any of the following symptoms?: No Close contact with a COVID-19 positive Pt in past 14-21 Days: No - Vaccine Status Have you recieved a Covid-19 vaccination: No - Review of Systems Constitutional: No Symptoms, No Fever, No Chills Eyes: No Symptoms Ears, Nose, & Throat: No Symptoms Respiratory: No Symptoms, No Cough, No Dyspnea Cardiac: No Symptoms, No Chest Pain, No Edema, No Syncope Abdominal/Gastrointestinal: No Symptoms, No Abdominal Pain, No Nausea, No Vomiting, No Diarrhea Genitourinary Symptoms: No Symptoms, No Dysuria Musculoskeletal: No Symptoms, No Back Pain, No Neck Pain Skin: No Symptoms, No Rash Neurological: No Symptoms, No Dizziness, No Focal Weakness, No Sensory Changes Psychological: No Symptoms Endocrine: No Symptoms Hematologic/Lymphatic: No Symptoms Immunological/Allergic: No Symptoms All Other Systems: Reviewed and Negative - Past Medical History Pertinent Past Medical History: Yes Neurological History: No Pertinent History ENT History: No Pertinent History Cardiac History: Hypertension Respiratory History: Bronchitis, Other Endocrine Medical History: No Pertinent History Musculoskeletal History: Fractures GI Medical History: No Pertinent History History: No Pertinent History Psycho-Social History: No Pertinent History Male Reproductive Disorders: No Pertinent History Other Medical History: HX OF FX TOES. SX - PILONIDAL CYST. HX OF HTN. WAS ON MEDS WHICH PATIENT STATES THE ANGIOEDEMA WAS A RESULT. 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 - Past Surgical History Past Surgical History: Yes Neuro Surgical History: No Pertinent History Cardiac: No Pertinent History Respiratory: No Pertinent History Gastrointestinal: No Pertinent History Genitourinary: No Pertinent History Musculoskeletal: No Pertinent History Male Surgical History: No Pertinent History Other Surgical History: cyst on tailbone - Social History Smoking Status: Current every day smoker How long have you smoked: 40 yrs Exposure to second hand smoke: Yes Drug Use: marijuana Patient Lives Alone: No - Nursing Vital Signs Nursing Vital Signs: Initial Vital Signs Temperature 97.2 F 12/22/21 22:18 Pulse Rate 108 H 12/22/21 22:18 Respiratory Rate 18 12/22/21 22:18 Blood Pressure 147/89 12/22/21 22:18 O2 Sat by Pulse Oximetry 100 12/22/21 22:18 Pain Scale Pain Intensity 0 - Physical Exam General Appearance: no apparent distress, alert Eye Exam: PERRL/EOMI, eyes nml inspection Ears, Nose, Throat Exam: normal ENT inspection, pharynx normal, moist mucous membranes Neck Exam: normal inspection, non-tender, supple, full range of motion Respiratory Exam: normal breath sounds, lungs clear, airway intact, No chest tenderness, No respiratory distress Cardiovascular Exam: regular rate/rhythm, normal heart sounds, normal peripheral pulses Gastrointestinal/Abdomen Exam: soft, distention, other (No abdominal pain but abdomen is distended with an obvious fluid wave.), No tenderness, No mass Back Exam: normal inspection, normal range of motion, No CVA tenderness, No vertebral tenderness Extremity Exam: normal inspection, normal range of motion, pelvis stable Neurologic Exam: alert, oriented x 3, cooperative, normal mood/affect, nml cerebellar function, sensation nml, No motor deficits Skin Exam: normal color, warm, dry Lymphatic Exam: adenopathy SpO2 Interpretation: normal SpO2: 100 O2 Delivery: Room Air - Course Nursing assessment & vital signs reviewed: Yes - CT Exams Abdomen/Pelvis CT Interpretation: Tele-radiologist Report (Cirrhosis, abdominal aortic and branch vessel peripheral artery disease. Osteopenia, ascites possibly related to hepatic insufficiency decreased in volume when compared to prior exam dated 06/25/2021.) Ordered Tests: Active Orders 24 hr Category Date Time Status IV Insertion STAT Care 12/22/21 22:26 Active ABDOMEN AND PELVIS W/0 CONTRAS [CT] Stat Exams 12/22/21 22:27 Taken CBC W DIFF Stat Lab 12/22/21 22:58 Completed CMP Stat Lab 12/22/21 22:58 Completed ETHYL ALCOHOL Stat Lab 12/22/21 22:58 Completed LIPASE Stat Lab 12/22/21 22:58 Completed TROPONIN Q4H Lab 12/22/21 22:58 Completed TROPONIN Q4H Lab 12/23/21 02:30 Ordered TROPONIN Q4H Lab 12/23/21 06:30 Ordered UA W/RFX CULTURE Stat Lab 12/22/21 Ordered Transfer Order Routine Transfer 12/23/21 Ordered Medication Summary Generic Name Dose Route Start Last Admin Trade Name Freq PRN Reason Stop Dose Admin Sodium Chloride 1,000 mls @ 100 mls/hr 12/22/21 22:30 12/22/21 22:35 Sodium Chloride 0.9% 1000 Ml IV 01/21/22 22:29 100 mls/hr .Q10H DASHA Administration Discontinued Medications Generic Name Dose Route Start Last Admin Trade Name Vivian PRN Reason Stop Dose Admin Morphine Sulfate 2 mg 12/22/21 22:26 12/22/21 22:35 Morphine Sulfate 2 Mg/Ml Inj IV 12/22/21 22:27 2 mg STAT ONE Administration Morphine Sulfate Confirm 12/22/21 22:32 Morphine Sulfate 2 Mg/Ml Inj Administered 12/22/21 22:33 Dose 2 mg .ROUTE .STK-MED ONE Ondansetron HCl 4 mg 12/22/21 22:26 12/22/21 22:31 Zofran 4 Mg/Udtablet Orally Disintegrating PO 12/22/21 22:27 Not Given STAT ONE Ondansetron HCl 4 mg 12/22/21 22:31 12/22/21 22:35 Ondansetron Hcl 4 Mg/2 Ml Vial IV 12/22/21 22:32 4 mg STAT ONE Administration Ondansetron HCl Confirm 12/22/21 22:32 Ondansetron Hcl 4 Mg/2 Ml Vial Administered 12/22/21 22:33 Dose 4 mg .ROUTE .STK-MED ONE Lab/Rad Data: Laboratory Result Diagrams 12/22/21 22:58 12/22/21 22:58 Laboratory Results 12/22/21 12/22/21 12/22/21 Range/Units 23:00 22:58 22:58 WBC (4.0-10.5) x10^3/uL RBC (4.1-5.6) x10^6/uL Hgb (12.5-18.0) g/dL Hct (42-50) % MCV (78-100) fL MCH (26-32) pg MCHC (32-36) g/dL RDW (11.5-14.0) % Plt Count (150-450) x10^3/uL MPV (7.5-11.0) fL Gran % (36.0-66.0) % Immature Gran % (Auto) (0.00-0.4) % Nucleat RBC Rel Count (0.00-0.1) % Eos # (Auto) (0-0.5) x10^3/uL Immature Gran # (Auto) (0.00-0.03) x10^3u/L Absolute Lymphs (auto) (1.0-4.6) x10^3/uL Absolute Monos (auto) (0.0-1.3) x10^3/uL Absolute Nucleated RBC (0.00-0.01) x10^3u/L Lymphocytes % (24.0-44.0) % Monocytes % (0.0-12.0) % Eosinophils % (0.00-5.0) % Basophils % (0.0-0.4) % Absolute Granulocytes (1.4-6.9) x10^3/uL Basophils # (0-0.4) x10^3/uL Sodium 140 (137-145) mmol/L Potassium 4.0 (3.5-5.1) mmol/L Chloride 104 (98-107) mmol/L Carbon Dioxide 19 L (22-30) mmol/L Anion Gap 21.0 H (5-15) MEQ/L BUN 10 (9-20) mg/dL Creatinine 1.13 (0.66-1.25) mg/dL Estimated GFR > 60.0 ML/MIN Glucose 104 (74-106) mg/dL Calcium 8.8 (8.4-10.2) mg/dL Total Bilirubin 0.90 (0.2-1.3) mg/dL AST 112 H (17-59) U/L ALT 21 (0-50) U/L Alkaline Phosphatase 466 H (38-126) U/L Troponin I < 0.012 (0.000-0.034) ng/mL Serum Total Protein 7.6 (6.3-8.2) g/dL Albumin 3.8 (3.5-5.0) g/dL Lipase 231 (23-300) U/L Ethyl Alcohol 293 H (0-10) mg/dL Influenza Type A Ag NEGATIVE (NEGATIVE) Influenza Type B Ag NEGATIVE (NEGATIVE) RSV (PCR) NEGATIVE (Negative) SARS-CoV-2 (PCR) NEGATIVE (NEGATIVE) 12/22/21 Range/Units 22:58 WBC 7.5 (4.0-10.5) x10^3/uL RBC 3.16 L (4.1-5.6) x10^6/uL Hgb 7.9 L (12.5-18.0) g/dL Hct 26.5 L (42-50) % MCV 83.9 (78-100) fL MCH 25.0 L (26-32) pg MCHC 29.8 L (32-36) g/dL RDW 24.3 H (11.5-14.0) % Plt Count 210 (150-450) x10^3/uL MPV 9.5 (7.5-11.0) fL Gran % 60.3 (36.0-66.0) % Immature Gran % (Auto) 0.4 (0.00-0.4) % Nucleat RBC Rel Count 0.0 (0.00-0.1) % Eos # (Auto) 0.17 (0-0.5) x10^3/uL Immature Gran # (Auto) 0.03 (0.00-0.03) x10^3u/L Absolute Lymphs (auto) 1.98 (1.0-4.6) x10^3/uL Absolute Monos (auto) 0.71 (0.0-1.3) x10^3/uL Absolute Nucleated RBC 0.00 (0.00-0.01) x10^3u/L Lymphocytes % 26.3 (24.0-44.0) % Monocytes % 9.4 (0.0-12.0) % Eosinophils % 2.3 (0.00-5.0) % Basophils % 1.3 (0.0-0.4) % Absolute Granulocytes 4.53 (1.4-6.9) x10^3/uL Basophils # 0.10 (0-0.4) x10^3/uL Sodium (137-145) mmol/L Potassium (3.5-5.1) mmol/L Chloride (98-107) mmol/L Carbon Dioxide (22-30) mmol/L Anion Gap (5-15) MEQ/L BUN (9-20) mg/dL Creatinine (0.66-1.25) mg/dL Estimated GFR ML/MIN Glucose (74-106) mg/dL Calcium (8.4-10.2) mg/dL Total Bilirubin (0.2-1.3) mg/dL AST (17-59) U/L ALT (0-50) U/L Alkaline Phosphatase (38-126) U/L Troponin I (0.000-0.034) ng/mL Serum Total Protein (6.3-8.2) g/dL Albumin (3.5-5.0) g/dL Lipase (23-300) U/L Ethyl Alcohol (0-10) mg/dL Influenza Type A Ag (NEGATIVE) Influenza Type B Ag (NEGATIVE) RSV (PCR) (Negative) SARS-CoV-2 (PCR) (NEGATIVE) - Progress Progress: improved Progress Note: Patient reassessed. He feels well. Patient denies abdominal pain. Work-up reveals alcoholic cirrhosis with ascites. Patient will need his ascitic fluid drained. Patient has chronic anemia. Hemoglobin currently 7.9. Patient denies shortness of breath. Patient denies a history of alcohol withdrawal. Patient has no fever. No abdominal pain. Spontaneous bacterial peritonitis is unlikely. We will hold off on antibiotics at this time. Patient alcohol level 293. Alk phos elevated at 466. COVID test negative. Case discussed with who accepts admission to observation. Plan of care discussed with patient. He agrees to admission at [facility] for further evaluation and treatment. Portions of this note were created with voice recognition technology. There may be grammatical, spelling, punctuation or sound alike errors 12/23/21 00:38 Discussed with .: Maxine Will see patient in: hospital (observation) Counseled pt/family regarding: lab results, diagnosis, rad results - Departure Departure Disposition: Observation Clinical Impression: Normocytic anemia, Alcohol intoxication, Elevated alkaline phosphatase level, Elevated liver enzymes, Liver cirrhosis, Peripheral arterial disease, Osteopenia, Ascites Condition: Stable Critical Care Time: No Referrals: LITA HERNANDEZ NP [Primary Care Provider] - Follow up/PCP as directed
[2021-12-23 01:38] LABS: Mucus SLIGHT /HPF (NEGATIVE)
[2021-12-23 01:39] LABS: Slide Review 1 YES
[2021-12-23 01:40] LABS: Appearance SLIGHTLY CLOUDY (CLEAR); Bacteria NONE SEEN /HPF (NEGATIVE); Bilirubin NEGATIVE (NEGATIVE); Dipstick done @ ? MAIN LAB; Glucose NEGATIVE (NEGATIVE); Ketones NEGATIVE (NEGATIVE); Nitrite NEGATIVE (NEGATIVE); Ph 5.5 (5-6); Protein,Urine Dip TRACE (Negative); RBC NEGATIVE Ery/ul (0-5); Specific Gravity 1.015 (1.005-1.025); Urine Cultured Indicated? YES; Urobilinogen 0.2 mg/dL (0-1)
[2021-12-23] MEDS ORDERED: Zofran 4 MG/2 ML VIAL IV PRN (02:00)
[2021-12-23] MEDS ORDERED: Ativan 2 MG/1 ML VIAL IV PRN (02:05)
[2021-12-23 05:23] LABS: Hematocrit 22.1 % (42-50); Mean Cell Volume 82.2 fL (78-100); Mean Corpuscular Hemoglobin 24.9 pg (26-32); Mean Corpuscular Hgb Concent. 30.3 g/dL (32-36); Mean Platelet Volume 9.4 fL (7.5-11.0); Platelet Count 162 x10^3/uL (150-450); Red Blood Count 2.69 x10^6/uL (4.1-5.6); Red Cell Distribution Width 23.9 % (11.5-14.0); White Blood Count 6.9 x10^3/uL (4.0-10.5)
[2021-12-23 05:24] LABS: ALKALINE PHOSPHATASE 362 U/L (38-126); ANION GAP 13.7 MEQ/L (5-15); BLOOD UREA NITROGEN 9 mg/dL (9-20); CHLORIDE 105 mmol/L (98-107); Carbon Dioxide 24 mmol/L (22-30); Creatinine 1 1.09 mg/dL (0.66-1.25); EST GLOMERULAR FILTRATION RATE > 60.0 ML/MIN; Glucose 81 mg/dL (74-106); Potassium 3.8 mmol/L (3.5-5.1); SGOT/AST 83 U/L (17-59); SGPT/ALT 17 U/L (0-50); SODIUM 139 mmol/L (137-145); Total Protein 6.3 g/dL (6.3-8.2)
[2021-12-23 05:29] LABS: Hemoglobin 6.7 g/dL (12.5-18.0)
[2021-12-23 08:07] LABS: Basophil 1 % (0.0-1.0); Eosinophil 2 % (0.00-3.0); Lymphocytes 39 % (24-44); Monocyte 2 % (0.0-12.0); Total Cells Counted 100
[2021-12-23 08:08] LABS: ANISOCYTOSIS 2+; Platelet Estimate NORMAL (NORMAL); Toxic Granulation 1+
[2021-12-23] MEDS ORDERED: NON-FORMULARY ITEM (Amlodipine Besylate [Amlodipine Besylate] 10 MG Tablet) PO SCH (10:00)
[2021-12-23] MEDS: NORVASC 5 MG PO SCH (10:02)
[2021-12-23] MEDS: Protonix 40MG Tablet PO SCH (10:02)
[2021-12-23] MEDS: Aldactone 25 MG PO SCH (10:02)
[2021-12-23] MEDS: MORPHINE SULFATE 2 MG INJ IV PRN ×2 (11:23→18:27)
--- NOTE | 2021-12-23 14:09 | XRAY ---
Exam: Limited abdominal ultrasound from 12/23/2021. Comparison: CT of the abdomen and pelvis without IV contrast from 12/22/2021. Indication: Known ascites; measure amount of fluid. Findings: Within the right upper quadrant of the abdomen, I note a mild amount of ascites adjacent to the liver, the fluid measuring 1.9 cm in depth. Within the right lower quadrant, there is also a small pocket of ascites fluid within the lower right paracolic gutter measuring 1.3 cm in width and 3.7 cm in AP depth. Within the lower mid aspect of the abdomen, there is an irregular pocket of ascites fluid measuring about 3.1 cm x 2.9 cm in greatest cross-section. The medical technologist generalist did not scan the left hemiabdomen, although no ascites was seen on this side of the abdomen on last evening's CT of the abdomen/pelvis. Impression: 1. There is a small amount of ascites seen within the right hemiabdomen, as discussed above. This has decreased significantly compared to the CT of the abdomen and pelvis from 06/25/2021.
--- NOTE | 2021-12-23 14:45 | XRAY ---
Exam: CT of the abdomen and pelvis without IV contrast from 12/22/2021. CTDI: 2.92 mGy Comparison: CT of the abdomen and pelvis with IV contrast from 06/25/2021. Indication: 66-year-old male with abdominal bloating and pain, as well as nausea/vomiting. The patient states he has a history of cirrhosis with ascites. He states he has had his ascites drained twice in the past. Technique: Non-IV contrast axial images were obtained through the abdomen and pelvis. Reconstructed coronal and sagittal images were created and reviewed. Findings: The lung bases appear clear, except for minimal stable atelectasis or scarring at the anterior right lung base. The transverse heart size is normal. Assessment of the solid organs is limited without the use of IV contrast. The liver is not enlarged. It contains some scattered calcified granulomas. No gross liver mass or intrahepatic biliary duct distention is seen on this noncontrast study. The liver demonstrates an uneven nodular surface suggestive of cirrhosis representing no change. There is equivocal evidence of a tiny posterior layering gallstone. The gallbladder is not enlarged and I see no gallbladder wall thickening. A small amount of ascites is seen lateral to the right lobe of the liver within the right upper quadrant measuring 1.4 cm in width. This has decreased as compared to 06/25/2021. I also note a small amount of ascitic fluid adjacent to the inferior tip of the right lobe of the liver and the right paracolic gutter. This also has significantly decreased as compared to 06/25/2021. There is slight thickening of the anterior aspect of Gerota's fascia on the right, likely due to the minimal ascites. The spleen is of normal size and reveals multiple calcified granulomas. No splenic mass is seen. The pancreas and adrenal glands appear unremarkable. The kidneys reveal no definite calculi or hydronephrosis. Right kidney measures about 8.8 cm in length and the left kidney measures about 8.8 cm in length suggesting that the kidneys are borderline small. This is unchanged. The ureters appear of normal diameter and reveal no ureterolith. Marked arteriosclerotic vascular calcification is seen within the abdominal aorta and its branches including the iliac arteries. An anterior femoral to femoral bypass graft is seen traversing the lower pelvis representing no change. I see no abnormal retroperitoneal lymphadenopathy. No free air is seen. No ventral abdominal wall hernia is noted. The bowel loops do not appear dilated. I note some wid[place] diverticula within the sigmoid colon consistent with diverticulosis. No evidence of diverticulitis is seen. No inflammatory changes are seen within the right lower quadrant to suggest appendicitis. No obvious bowel wall thickening is seen. The urinary bladder appears grossly unremarkable. Some stippled calcification is seen within the posterior central aspect of an otherwise normal sized prostate gland, the latter measuring 3.6 cm in width on axial image #73. The seminal vesicles appear symmetric. There is also a minimal amount of free fluid within the lower posterior pelvis. No other pelvic mass or abnormal lymphadenopathy is seen. The skeleton reveals an apparent new subtle fracture deformities at the posterior medial aspect of the right 11th and 12th ribs. See axial images #7 and #8, and #14 and #15. These fractures are not seen on the prior CT study from 06/25/2021. Correlate clinically. I see no other fracture or aggressive bone lesion. Vacuum disc phenomena indicating degenerative disc disease is seen at T10-T11. I believe there is also moderate degenerative disc disease at T9-T10. There is slight loss of the anterior vertebral body height of T12 which is unchanged from 06/25/2021 (i.e. old). Mild vertebral endplate spurring is seen. Impression: 1. I again see CT features of the liver consistent with cirrhosis manifested by an uneven liver surface. The liver is not enlarged. 2. Scattered calcified granulomas are seen within the liver and spleen consistent with prior granulomatous exposure. The spleen is not enlarged. 3. Only a small amount of ascites is seen within the right upper quadrant, right paracolic gutter, and lower posterior pelvic midline. This has greatly decreased as compared to 06/25/2021. 4. On axial image #24 and sagittal image #48, I cannot exclude a tiny posterior layering gallstone. The gallbladder is not enlarged. No gallbladder wall thickening or biliary duct distention is seen. 5. Both kidneys appear borderline decreased in size, but are otherwise unremarkable. This is unchanged. 6. Sigmoid colon diverticulosis without evidence of diverticulitis, extensive arteriosclerotic vascular calcification, and femoral-femoral bypass graft coursing across the anterior aspect of the lower pelvis are seen. 6. Incidentally, there appear to be new subtle healing fracture deformities of the posterior medial aspect of the right 11th and 12th ribs as compared to 06/25/2021. Correlate with trauma history.
[2021-12-23 15:23] LABS: ABO TYPING O; Antibody Screen NEGATIVE (NEGATIVE); RH TYPING NEGATIVE
[2021-12-23] MEDS: Sodium Chloride 0.9% 500 ML 500 ML IV SCH (15:39)
[2021-12-23 15:40] LABS: CROSS MATCH (PRBC) COMPATIBLE (COMPATIBLE)
--- NOTE | 2021-12-23 17:47 | PCM.HP ---
History of Present Illness - Chief Complaint Chief Complaint: abdominal distension for 2-3 days History of Present Illness: is a 66 year old male.with a history of cirrhosis presents to our ED for evaluation of distended abdomen. Patient believes he is filling up with ascitic fluid. He has no pain. No fever. Patient believes he needs a paracentesis. Patient states his abdomen has been full for approximately 4 days. No nausea or vomiting. No diarrhea. No rash. Patient smells of alcohol. He admits to drinking recently. Patient drinks whiskey daily. He denies alcohol withdrawal if he does not drink his whiskey. Symptoms are mild in intensity. No specific worsening improving factors. Patient declined pain medication. Patient is requesting a paracentesis. Patient voices no other complaints or concerns at this time. - Review of Systems Constitutional: No Fever, No Chills Eyes: No Symptoms Ears, Nose, & Throat: No Symptoms Respiratory: No Cough, No Short Of Breath Cardiac: No Chest Pain, No Edema, No Syncope Abdominal/Gastrointestinal: Abdominal Pain, Appetite Changes, No Nausea, No Vomiting, No Diarrhea Genitourinary Symptoms: No Dysuria Musculoskeletal: No Back Pain, No Neck Pain Skin: No Rash Neurological: No Dizziness, No Focal Weakness, No Sensory Changes Psychological: No Symptoms Endocrine: No Symptoms Hematologic/Lymphatic: No Symptoms Immunological/Allergic: No Symptoms Medications & Allergies Home Medications: Home Medication List Amlodipine Besylate 10 mg PO DAILY 06/25/21 [History Confirmed 12/23/21] Rivaroxaban [Xarelto] 2.5 mg PO DAILY 06/25/21 [History Confirmed 12/23/21] PANTOPRAZOLE 40 mg Tablet [Protonix 40MG Tablet] 40 mg PO DAILY 12/23/21 [History Confirmed 12/23/21] Spironolactone 25 mg [Aldactone 25 MG] 25 mg PO DAILY 12/23/21 [History Confirmed 12/23/21] Allergies/Adverse Reactions: Allergies Allergy/AdvReac Type Severity Reaction Status Date / Time lisinopril Allergy Severe Swelling Verified 12/23/21 02:06 Penicillins Allergy Severe Swelling Verified 12/23/21 02:06 - Past Medical History Past Medical History: Yes Neurological History: No Pertinent History ENT History: No Pertinent History Cardiac History: Hypertension Respiratory History: Bronchitis, COPD, Other Endocrine Medical History: Liver Disease Musculoskelatal History: Fractures GI Medical History: Cirrhosis History: No Pertinent History Pyscho-Social History: No Pertinent History Male Reproductive Disorders: No Pertinent History 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 paracentesis x 2 most recently September 2021 at [place]. left femoral artery bypass 2019 - Social History Smoking Status: Current every day smoker How long have you smoked: 50 years Exposure to second hand smoke: Yes Alcohol: Heavy, Daily Drug Use: marijuana - Physical Exam Vital Signs: Vital Signs - 24 hr Temp Pulse Resp BP Pulse Ox 12/23/21 16:06 98.0 F 93 H 122/72 12/23/21 13:00 98.7 F 91 H 16 124/70 98 12/23/21 07:13 98.4 F 99 H 16 112/69 96 12/23/21 05:04 98.2 F 93 H 18 106/75 95 12/23/21 02:14 97.7 F 101 H 18 151/82 98 12/23/21 01:00 84 16 134/76 96 12/23/21 00:46 100 12/23/21 00:20 89 18 92/63 98 12/22/21 22:18 97.2 F 108 H 18 147/89 100 General Appearance: no apparent distress, alert Neurologic Exam: alert, oriented x 3, cooperative, normal mood/affect, nml cerebellar function, nml station & gait, sensation nml, No motor deficits Eye Exam: PERRL/EOMI, eyes nml inspection Ears, Nose, Throat Exam: normal ENT inspection, TMs normal, pharynx normal, moist mucous membranes Neck Exam: normal inspection, non-tender, supple, full range of motion Respiratory Exam: normal breath sounds, lungs clear, No respiratory distress Cardiovascular Exam: regular rate/rhythm, normal heart sounds, normal peripheral pulses Gastrointestinal/Abdomen Exam: soft, normal bowel sounds, No tenderness, No mass Back Exam: normal inspection, normal range of motion, No CVA tenderness, No vertebral tenderness Extremity Exam: normal inspection, normal range of motion, pelvis stable Skin Exam: normal color, warm, dry, No rash Lymphatic Exam: No adenopathy Results - Labs Lab/Micro Results: Lab Results-Last 24 Hours 12/22/21 12/22/21 12/22/21 Range/Units 22:58 22:58 22:58 WBC 7.5 (4.0-10.5) x10^3/uL RBC 3.16 L (4.1-5.6) x10^6/uL Hgb 7.9 L (12.5-18.0) g/dL Hct 26.5 L (42-50) % MCV 83.9 (78-100) fL MCH 25.0 L (26-32) pg MCHC 29.8 L (32-36) g/dL RDW 24.3 H (11.5-14.0) % Plt Count 210 (150-450) x10^3/uL MPV 9.5 (7.5-11.0) fL Gran % 60.3 (36.0-66.0) % Immature Gran % (Auto) 0.4 (0.00-0.4) % Nucleat RBC Rel Count 0.0 (0.00-0.1) % Eos # (Auto) 0.17 (0-0.5) x10^3/uL Immature Gran # (Auto) 0.03 (0.00-0.03) x10^3u/L Absolute Lymphs (auto) 1.98 (1.0-4.6) x10^3/uL Absolute Monos (auto) 0.71 (0.0-1.3) x10^3/uL Absolute Nucleated RBC 0.00 (0.00-0.01) x10^3u/L Lymphocytes % 26.3 (24.0-44.0) % Monocytes % 9.4 (0.0-12.0) % Eosinophils % 2.3 (0.00-5.0) % Basophils % 1.3 (0.0-0.4) % Absolute Granulocytes 4.53 (1.4-6.9) x10^3/uL Segmented Neutrophils (36.-66.) % Lymphocytes (Manual) (24-44) % Monocytes (Manual) (0.0-12.0) % Eosinophils (Manual) (0.00-3.0) % Basophils (Manual) (0.0-1.0) % Basophils # 0.10 (0-0.4) x10^3/uL Toxic Granulation Platelet Estimate (NORMAL) RBC Morphology Anisocytosis Sodium 140 (137-145) mmol/L Potassium 4.0 (3.5-5.1) mmol/L Chloride 104 (98-107) mmol/L Carbon Dioxide 19 L (22-30) mmol/L Anion Gap 21.0 H (5-15) MEQ/L BUN 10 (9-20) mg/dL Creatinine 1.13 (0.66-1.25) mg/dL Estimated GFR > 60.0 ML/MIN Glucose 104 (74-106) mg/dL Calcium 8.8 (8.4-10.2) mg/dL Total Bilirubin 0.90 (0.2-1.3) mg/dL AST 112 H (17-59) U/L ALT 21 (0-50) U/L Alkaline Phosphatase 466 H (38-126) U/L Troponin I < 0.012 (0.000-0.034) ng/mL Serum Total Protein 7.6 (6.3-8.2) g/dL Albumin 3.8 (3.5-5.0) g/dL Lipase 231 (23-300) U/L Urinalys Dipstick Clnc Urine Color (YELLOW) Urine Appearance (CLEAR) Urine pH (5-6) Ur Specific M[place] (1.005-1.025) POC Urine Protein Conf (Negative) Urine Ketones (NEGATIVE) Urine Nitrite (NEGATIVE) Urine Bilirubin (NEGATIVE) Urine Urobilinogen (0-1) mg/dL Urine Leukocytes (NEGATIVE) Urine WBC (Auto) (0-5) /HPF Urine RBC (Auto) (0-2) /HPF U Epithel Cells (Auto) (FEW) /HPF Urine Bacteria (Auto) (NEGATIVE) /HPF Urine RBC (0-5) Corona/ul Urine Mucus (Auto) (NEGATIVE) /HPF Ur Culture Indicated? Urine Glucose (NEGATIVE) mg/dL Ethyl Alcohol 293 H (0-10) mg/dL Influenza Type A Ag (NEGATIVE) Influenza Type B Ag (NEGATIVE) RSV (PCR) (Negative) SARS-CoV-2 (PCR) (NEGATIVE) Slides for Path Review YES ABO Group Rh Factor Antibody Screen (NEGATIVE) Crossmatch (COMPATIBLE) 12/22/21 12/23/21 12/23/21 Range/Units 23:00 01:11 04:58 WBC (4.0-10.5) x10^3/uL RBC (4.1-5.6) x10^6/uL Hgb (12.5-18.0) g/dL Hct (42-50) % MCV (78-100) fL MCH (26-32) pg MCHC (32-36) g/dL RDW (11.5-14.0) % Plt Count (150-450) x10^3/uL MPV (7.5-11.0) fL Gran % (36.0-66.0) % Immature Gran % (Auto) (0.00-0.4) % Nucleat RBC Rel Count (0.00-0.1) % Eos # (Auto) (0-0.5) x10^3/uL Immature Gran # (Auto) (0.00-0.03) x10^3u/L Absolute Lymphs (auto) (1.0-4.6) x10^3/uL Absolute Monos (auto) (0.0-1.3) x10^3/uL Absolute Nucleated RBC (0.00-0.01) x10^3u/L Lymphocytes % (24.0-44.0) % Monocytes % (0.0-12.0) % Eosinophils % (0.00-5.0) % Basophils % (0.0-0.4) % Absolute Granulocytes (1.4-6.9) x10^3/uL Segmented Neutrophils (36.-66.) % Lymphocytes (Manual) (24-44) % Monocytes (Manual) (0.0-12.0) % Eosinophils (Manual) (0.00-3.0) % Basophils (Manual) (0.0-1.0) % Basophils # (0-0.4) x10^3/uL Toxic Granulation Platelet Estimate (NORMAL) RBC Morphology Anisocytosis Sodium (137-145) mmol/L Potassium (3.5-5.1) mmol/L Chloride (98-107) mmol/L Carbon Dioxide (22-30) mmol/L Anion Gap (5-15) MEQ/L BUN (9-20) mg/dL Creatinine (0.66-1.25) mg/dL Estimated GFR ML/MIN Glucose (74-106) mg/dL Calcium (8.4-10.2) mg/dL Total Bilirubin (0.2-1.3) mg/dL AST (17-59) U/L ALT (0-50) U/L Alkaline Phosphatase (38-126) U/L Troponin I < 0.012 (0.000-0.034) ng/mL Serum Total Protein (6.3-8.2) g/dL Albumin (3.5-5.0) g/dL Lipase (23-300) U/L Urinalys Dipstick Clnc MAIN LAB Urine Color YELLOW (YELLOW) Urine Appearance SLIGHTLY CLOUDY (CLEAR) Urine pH 5.5 (5-6) Ur Specific [place] 1.015 (1.005-1.025) POC Urine Protein Conf TRACE (Negative) Urine Ketones NEGATIVE (NEGATIVE) Urine Nitrite NEGATIVE (NEGATIVE) Urine Bilirubin NEGATIVE (NEGATIVE) Urine Urobilinogen 0.2 (0-1) mg/dL Urine Leukocytes TRACE (NEGATIVE) Urine WBC (Auto) 11-15 (0-5) /HPF Urine RBC (Auto) NONE (0-2) /HPF U Epithel Cells (Auto) NONE (FEW) /HPF Urine Bacteria (Auto) NONE SEEN (NEGATIVE) /HPF Urine RBC NEGATIVE (0-5) Corona/ul Urine Mucus (Auto) SLIGHT (NEGATIVE) /HPF Ur Culture Indicated? YES Urine Glucose NEGATIVE (NEGATIVE) mg/dL Ethyl Alcohol (0-10) mg/dL Influenza Type A Ag NEGATIVE (NEGATIVE) Influenza Type B Ag NEGATIVE (NEGATIVE) RSV (PCR) NEGATIVE (Negative) SARS-CoV-2 (PCR) NEGATIVE (NEGATIVE) Slides for Path Review ABO Group Rh Factor Antibody Screen (NEGATIVE) Crossmatch (COMPATIBLE) 12/23/21 12/23/21 12/23/21 Range/Units 04:58 04:58 12:55 WBC 6.9 (4.0-10.5) x10^3/uL RBC 2.69 L (4.1-5.6) x10^6/uL Hgb 6.7 L* (12.5-18.0) g/dL Hct 22.1 L (42-50) % MCV 82.2 (78-100) fL MCH 24.9 L (26-32) pg MCHC 30.3 L (32-36) g/dL RDW 23.9 H (11.5-14.0) % Plt Count 162 (150-450) x10^3/uL MPV 9.4 (7.5-11.0) fL Gran % (36.0-66.0) % Immature Gran % (Auto) (0.00-0.4) % Nucleat RBC Rel Count (0.00-0.1) % Eos # (Auto) (0-0.5) x10^3/uL Immature Gran # (Auto) (0.00-0.03) x10^3u/L Absolute Lymphs (auto) (1.0-4.6) x10^3/uL Absolute Monos (auto) (0.0-1.3) x10^3/uL Absolute Nucleated RBC (0.00-0.01) x10^3u/L Lymphocytes % (24.0-44.0) % Monocytes % (0.0-12.0) % Eosinophils % (0.00-5.0) % Basophils % (0.0-0.4) % Absolute Granulocytes (1.4-6.9) x10^3/uL Segmented Neutrophils 56 (36.-66.) % Lymphocytes (Manual) 39 (24-44) % Monocytes (Manual) 2 (0.0-12.0) % Eosinophils (Manual) 2 (0.00-3.0) % Basophils (Manual) 1 (0.0-1.0) % Basophils # (0-0.4) x10^3/uL Toxic Granulation 1+ Platelet Estimate NORMAL (NORMAL) RBC Morphology ABNORMAL Anisocytosis 2+ Sodium 139 (137-145) mmol/L Potassium 3.8 (3.5-5.1) mmol/L Chloride 105 (98-107) mmol/L Carbon Dioxide 24 (22-30) mmol/L Anion Gap 13.7 (5-15) MEQ/L BUN 9 (9-20) mg/dL Creatinine 1.09 (0.66-1.25) mg/dL Estimated GFR > 60.0 ML/MIN Glucose 81 (74-106) mg/dL Calcium 8.0 L (8.4-10.2) mg/dL Total Bilirubin 0.50 (0.2-1.3) mg/dL AST 83 H (17-59) U/L ALT 17 (0-50) U/L Alkaline Phosphatase 362 H (38-126) U/L Troponin I (0.000-0.034) ng/mL Serum Total Protein 6.3 (6.3-8.2) g/dL Albumin 3.0 L (3.5-5.0) g/dL Lipase (23-300) U/L Urinalys Dipstick Clnc Urine Color (YELLOW) Urine Appearance (CLEAR) Urine pH (5-6) Ur Specific M[place] (1.005-1.025) POC Urine Protein Conf (Negative) Urine Ketones (NEGATIVE) Urine Nitrite (NEGATIVE) Urine Bilirubin (NEGATIVE) Urine Urobilinogen (0-1) mg/dL Urine Leukocytes (NEGATIVE) Urine WBC (Auto) (0-5) /HPF Urine RBC (Auto) (0-2) /HPF U Epithel Cells (Auto) (FEW) /HPF Urine Bacteria (Auto) (NEGATIVE) /HPF Urine RBC (0-5) Corona/ul Urine Mucus (Auto) (NEGATIVE) /HPF Ur Culture Indicated? Urine Glucose (NEGATIVE) mg/dL Ethyl Alcohol (0-10) mg/dL Influenza Type A Ag (NEGATIVE) Influenza Type B Ag (NEGATIVE) RSV (PCR) (Negative) SARS-CoV-2 (PCR) (NEGATIVE) Slides for Path Review ABO Group O Rh Factor NEGATIVE Antibody Screen NEGATIVE (NEGATIVE) Crossmatch (COMPATIBLE) 12/23/21 12/23/21 Range/Units 12:55 12:55 WBC (4.0-10.5) x10^3/uL RBC (4.1-5.6) x10^6/uL Hgb (12.5-18.0) g/dL Hct (42-50) % MCV (78-100) fL MCH (26-32) pg MCHC (32-36) g/dL RDW (11.5-14.0) % Plt Count (150-450) x10^3/uL MPV (7.5-11.0) fL Gran % (36.0-66.0) % Immature Gran % (Auto) (0.00-0.4) % Nucleat RBC Rel Count (0.00-0.1) % Eos # (Auto) (0-0.5) x10^3/uL Immature Gran # (Auto) (0.00-0.03) x10^3u/L Absolute Lymphs (auto) (1.0-4.6) x10^3/uL Absolute Monos (auto) (0.0-1.3) x10^3/uL Absolute Nucleated RBC (0.00-0.01) x10^3u/L Lymphocytes % (24.0-44.0) % Monocytes % (0.0-12.0) % Eosinophils % (0.00-5.0) % Basophils % (0.0-0.4) % Absolute Granulocytes (1.4-6.9) x10^3/uL Segmented Neutrophils (36.-66.) % Lymphocytes (Manual) (24-44) % Monocytes (Manual) (0.0-12.0) % Eosinophils (Manual) (0.00-3.0) % Basophils (Manual) (0.0-1.0) % Basophils # (0-0.4) x10^3/uL Toxic Granulation Platelet Estimate (NORMAL) RBC Morphology Anisocytosis Sodium (137-145) mmol/L Potassium (3.5-5.1) mmol/L Chloride (98-107) mmol/L Carbon Dioxide (22-30) mmol/L Anion Gap (5-15) MEQ/L BUN (9-20) mg/dL Creatinine (0.66-1.25) mg/dL Estimated GFR ML/MIN Glucose (74-106) mg/dL Calcium (8.4-10.2) mg/dL Total Bilirubin (0.2-1.3) mg/dL AST (17-59) U/L ALT (0-50) U/L Alkaline Phosphatase (38-126) U/L Troponin I (0.000-0.034) ng/mL Serum Total Protein (6.3-8.2) g/dL Albumin (3.5-5.0) g/dL Lipase (23-300) U/L Urinalys Dipstick Clnc Urine Color (YELLOW) Urine Appearance (CLEAR) Urine pH (5-6) Ur Specific M[place] (1.005-1.025) POC Urine Protein Conf (Negative) Urine Ketones (NEGATIVE) Urine Nitrite (NEGATIVE) Urine Bilirubin (NEGATIVE) Urine Urobilinogen (0-1) mg/dL Urine Leukocytes (NEGATIVE) Urine WBC (Auto) (0-5) /HPF Urine RBC (Auto) (0-2) /HPF U Epithel Cells (Auto) (FEW) /HPF Urine Bacteria (Auto) (NEGATIVE) /HPF Urine RBC (0-5) Corona/ul Urine Mucus (Auto) (NEGATIVE) /HPF Ur Culture Indicated? Urine Glucose (NEGATIVE) mg/dL Ethyl Alcohol (0-10) mg/dL Influenza Type A Ag (NEGATIVE) Influenza Type B Ag (NEGATIVE) RSV (PCR) (Negative) SARS-CoV-2 (PCR) (NEGATIVE) Slides for Path Review ABO Group Rh Factor Antibody Screen (NEGATIVE) Crossmatch COMPATIBLE COMPATIBLE (COMPATIBLE) - Radiology Impressions Radiology Exams & Impressions: Radiology Procedures Category Date Time Status ABDOMEN AND PELVIS W/0 CONTRAS [CT] Stat Exams 12/22/21 22:27 Completed ABDOMINAL-LIMITED [US] Urgent Exams 12/23/21 12:54 Completed Assessment/Plan (1) Alcohol intoxication Current Visit: Yes Status: Acute Qualifiers: Complication of substance-induced condition: uncomplicated Qualified Code(s): F10.920 - Alcohol use, unspecified with intoxication, uncomplicated Assessment & Plan: Chief Complaint Diagnosis Cirrhosis of the liver, ascites Allergies Allergy/AdvReac Type Severity Reaction Status Date / Time lisinopril Allergy Severe Swelling Verified 12/23/21 02:06 Penicillins Allergy Severe Swelling Verified 12/23/21 02:06 Vital Signs (Last 24 hours) Temp Pulse Resp BP Pulse Ox 12/23/21 16:06 98.0 F 93 H 122/72 12/23/21 13:00 98.7 F 91 H 16 124/70 98 12/23/21 07:13 98.4 F 99 H 16 112/69 96 12/23/21 05:04 98.2 F 93 H 18 106/75 95 12/23/21 02:14 97.7 F 101 H 18 151/82 98 12/23/21 01:00 84 16 134/76 96 12/23/21 00:46 100 12/23/21 00:20 89 18 92/63 98 12/22/21 22:18 97.2 F 108 H 18 147/89 100 Home Medications Medication Instructions Recorded Confirmed Last Taken Type PANTOPRAZOLE 40 mg Tablet 40 mg PO DAILY 12/23/21 12/23/21 12/21/21 10:00 History [Protonix 40MG Tablet] Spironolactone 25 mg [Aldactone 25 mg PO DAILY 12/23/21 12/23/21 12/21/21 10:00 History 25 MG] Current Medications Generic Name Dose Route Start Last Admin Trade Name Vivian PRN Reason Stop Dose Admin Amlodipine Besylate 10 mg 12/23/21 10:00 12/23/21 10:02 Amlodipine Besylate 5 Mg Tablet PO 01/22/22 09:59 10 mg DAILY DASHA Administration Sodium Chloride 500 mls @ 50 mls/hr 12/23/21 14:00 12/23/21 15:39 Sodium Chloride 0.9% 500 Ml IV 01/22/22 13:59 50 mls/hr .Q10H DASHA Administration Lorazepam 1 mg 12/23/21 02:05 Lorazepam 2 Mg/1 Ml 2 Mg Vial IV 01/22/22 02:04 Q4H PRN PRN ANXIETY/AGITATION Morphine Sulfate 2 mg 12/23/21 02:00 12/23/21 11:23 Morphine Sulfate 2 Mg/Ml Inj IV 12/28/21 01:59 2 mg Q4H PRN PRN Administration PAIN Ondansetron HCl 4 mg 12/23/21 02:00 Ondansetron Hcl 4 Mg/2 Ml Vial IV 01/22/22 01:59 Q6H PRN PRN NAUSEA/VOMITING Pantoprazole Sodium 40 mg 12/23/21 10:00 12/23/21 10:02 Protonix (Pantoprazole) 40 Mg Tablet PO 01/22/22 09:59 40 mg DAILY DASHA Administration Spironolactone 25 mg 12/23/21 10:00 12/23/21 10:02 Spironolactone 25 Mg Tablet PO 01/22/22 09:59 25 mg DAILY DASHA Administration Discontinued Medications Generic Name Dose Route Start Last Admin Trade Name Vivian PRN Reason Stop Dose Admin Sodium Chloride 1,000 mls @ 100 mls/hr 12/22/21 22:30 12/22/21 22:35 Sodium Chloride 0.9% 1000 Ml IV 01/21/22 22:29 100 mls/hr .Q10H DASHA Administration Sodium Chloride Confirm 12/22/21 22:32 Sodium Chloride 0.9% 1000 Ml Administered 12/22/21 22:33 Dose 1,000 mls @ ud .ROUTE .STK-MED ONE Morphine Sulfate 2 mg 12/22/21 22:26 12/22/21 22:35 Morphine Sulfate 2 Mg/Ml Inj IV 12/22/21 22:27 2 mg STAT ONE Administration Morphine Sulfate Confirm 12/22/21 22:32 Morphine Sulfate 2 Mg/Ml Inj Administered 12/22/21 22:33 Dose 2 mg .ROUTE .STK-MED ONE Ondansetron HCl 4 mg 12/22/21 22:26 12/22/21 22:31 Zofran 4 Mg/Udtablet Orally Disintegrating PO 12/22/21 22:27 Not Given STAT ONE Ondansetron HCl 4 mg 12/22/21 22:31 12/22/21 22:35 Ondansetron Hcl 4 Mg/2 Ml Vial IV 12/22/21 22:32 4 mg STAT ONE Administration Ondansetron HCl Confirm 12/22/21 22:32 Ondansetron Hcl 4 Mg/2 Ml Vial Administered 12/22/21 22:33 Dose 4 mg .ROUTE .STK-MED ONE Intake & Output (Last 24 hours) 12/21/21 12/22/21 12/23/21 12/24/21 11:59 11:59 11:59 11:59 Intake Total 585 280 Output Total 50 Balance 535 280 Weight 51.1 kg Microbiology Results (Last 24 hours) 12/23/21 01:11 Urine, Void Urine Culture - Pending Laboratory Results (Last 24 hours) 12/23/21 12/23/21 12/23/21 12:55 12:55 12:55 WBC RBC Hgb Hct MCV MCH MCHC RDW Plt Count MPV Gran % Immature Gran % (Auto) Nucleat RBC Rel Count Eos # (Auto) Immature Gran # (Auto) Absolute Lymphs (auto) Absolute Monos (auto) Absolute Nucleated RBC Lymphocytes % Monocytes % Eosinophils % Basophils % Absolute Granulocytes Segmented Neutrophils Lymphocytes (Manual) Monocytes (Manual) Eosinophils (Manual) Basophils (Manual) Basophils # Toxic Granulation Platelet Estimate RBC Morphology Anisocytosis Sodium Potassium Chloride Carbon Dioxide Anion Gap BUN Creatinine Estimated GFR Glucose Calcium Total Bilirubin AST ALT Alkaline Phosphatase Troponin I Serum Total Protein Albumin Lipase Urinalys Dipstick Clnc Urine Color Urine Appearance Urine pH Ur Specific [place] POC Urine Protein Conf Urine Ketones Urine Nitrite Urine Bilirubin Urine Urobilinogen Urine Leukocytes Urine WBC (Auto) Urine RBC (Auto) U Epithel Cells (Auto) Urine Bacteria (Auto) Urine RBC Urine Mucus (Auto) Ur Culture Indicated? Urine Glucose Ethyl Alcohol Influenza Type A Ag Influenza Type B Ag RSV (PCR) SARS-CoV-2 (PCR) Slides for Path Review ABO Group O Rh Factor NEGATIVE Antibody Screen NEGATIVE Crossmatch COMPATIBLE COMPATIBLE 12/23/21 12/23/21 12/23/21 04:58 04:58 04:58 WBC 6.9 RBC 2.69 L Hgb 6.7 L* Hct 22.1 L MCV 82.2 MCH 24.9 L MCHC 30.3 L RDW 23.9 H Plt Count 162 MPV 9.4 Gran % Immature Gran % (Auto) Nucleat RBC Rel Count Eos # (Auto) Immature Gran # (Auto) Absolute Lymphs (auto) Absolute Monos (auto) Absolute Nucleated RBC Lymphocytes % Monocytes % Eosinophils % Basophils % Absolute Granulocytes Segmented Neutrophils 56 Lymphocytes (Manual) 39 Monocytes (Manual) 2 Eosinophils (Manual) 2 Basophils (Manual) 1 Basophils # Toxic Granulation 1+ Platelet Estimate NORMAL RBC Morphology ABNORMAL Anisocytosis 2+ Sodium 139 Potassium 3.8 Chloride 105 Carbon Dioxide 24 Anion Gap 13.7 BUN 9 Creatinine 1.09 Estimated GFR > 60.0 Glucose 81 Calcium 8.0 L Total Bilirubin 0.50 AST 83 H ALT 17 Alkaline Phosphatase 362 H Troponin I < 0.012 Serum Total Protein 6.3 Albumin 3.0 L Lipase Urinalys Dipstick Clnc Urine Color Urine Appearance Urine pH Ur Specific [place] POC Urine Protein Conf Urine Ketones Urine Nitrite Urine Bilirubin Urine Urobilinogen Urine Leukocytes Urine WBC (Auto) Urine RBC (Auto) U Epithel Cells (Auto) Urine Bacteria (Auto) Urine RBC Urine Mucus (Auto) Ur Culture Indicated? Urine Glucose Ethyl Alcohol Influenza Type A Ag Influenza Type B Ag RSV (PCR) SARS-CoV-2 (PCR) Slides for Path Review ABO Group Rh Factor Antibody Screen Crossmatch 12/23/21 12/22/21 12/22/21 01:11 23:00 22:58 WBC RBC Hgb Hct MCV MCH MCHC RDW Plt Count MPV Gran % Immature Gran % (Auto) Nucleat RBC Rel Count Eos # (Auto) Immature Gran # (Auto) Absolute Lymphs (auto) Absolute Monos (auto) Absolute Nucleated RBC Lymphocytes % Monocytes % Eosinophils % Basophils % Absolute Granulocytes Segmented Neutrophils Lymphocytes (Manual) Monocytes (Manual) Eosinophils (Manual) Basophils (Manual) Basophils # Toxic Granulation Platelet Estimate RBC Morphology Anisocytosis Sodium Potassium Chloride Carbon Dioxide Anion Gap BUN Creatinine Estimated GFR Glucose Calcium Total Bilirubin AST ALT Alkaline Phosphatase Troponin I < 0.012 Serum Total Protein Albumin Lipase Urinalys Dipstick Clnc MAIN LAB Urine Color YELLOW Urine Appearance SLIGHTLY CLOUDY Urine pH 5.5 Ur Specific [place] 1.015 POC Urine Protein Conf TRACE Urine Ketones NEGATIVE Urine Nitrite NEGATIVE Urine Bilirubin NEGATIVE Urine Urobilinogen 0.2 Urine Leukocytes TRACE Urine WBC (Auto) 11-15 Urine RBC (Auto) NONE U Epithel Cells (Auto) NONE Urine Bacteria (Auto) NONE SEEN Urine RBC NEGATIVE Urine Mucus (Auto) SLIGHT Ur Culture Indicated? YES Urine Glucose NEGATIVE Ethyl Alcohol Influenza Type A Ag NEGATIVE Influenza Type B Ag NEGATIVE RSV (PCR) NEGATIVE SARS-CoV-2 (PCR) NEGATIVE Slides for Path Review ABO Group Rh Factor Antibody Screen Crossmatch 12/22/21 12/22/21 22:58 22:58 WBC 7.5 RBC 3.16 L Hgb 7.9 L Hct 26.5 L MCV 83.9 MCH 25.0 L MCHC 29.8 L RDW 24.3 H Plt Count 210 MPV 9.5 Gran % 60.3 Immature Gran % (Auto) 0.4 Nucleat RBC Rel Count 0.0 Eos # (Auto) 0.17 Immature Gran # (Auto) 0.03 Absolute Lymphs (auto) 1.98 Absolute Monos (auto) 0.71 Absolute Nucleated RBC 0.00 Lymphocytes % 26.3 Monocytes % 9.4 Eosinophils % 2.3 Basophils % 1.3 Absolute Granulocytes 4.53 Segmented Neutrophils Lymphocytes (Manual) Monocytes (Manual) Eosinophils (Manual) Basophils (Manual) Basophils # 0.10 Toxic Granulation Platelet Estimate RBC Morphology Anisocytosis Sodium 140 Potassium 4.0 Chloride 104 Carbon Dioxide 19 L Anion Gap 21.0 H BUN 10 Creatinine 1.13 Estimated GFR > 60.0 Glucose 104 Calcium 8.8 Total Bilirubin 0.90 AST 112 H ALT 21 Alkaline Phosphatase 466 H Troponin I Serum Total Protein 7.6 Albumin 3.8 Lipase 231 Urinalys Dipstick Clnc Urine Color Urine Appearance Urine pH Ur Specific [place] POC Urine Protein Conf Urine Ketones Urine Nitrite Urine Bilirubin Urine Urobilinogen Urine Leukocytes Urine WBC (Auto) Urine RBC (Auto) U Epithel Cells (Auto) Urine Bacteria (Auto) Urine RBC Urine Mucus (Auto) Ur Culture Indicated? Urine Glucose Ethyl Alcohol 293 H Influenza Type A Ag Influenza Type B Ag RSV (PCR) SARS-CoV-2 (PCR) Slides for Path Review YES ABO Group Rh Factor Antibody Screen Crossmatch Orders (Last 24 hours) Category Date Time Status Up With Assistance ROUTINE Activity 12/23/21 02:00 Active Code Status Order ROUTINE Care 12/23/21 02:00 Active IV Care Q6H Care 12/23/21 02:00 Active IV Insertion STAT Care 12/22/21 22:26 Completed Neuro Checks Q4H Care 12/23/21 02:[address] in Observation ROUTINE Care 12/23/21 02:00 Active [place]/Discharge Plan ROUTINE Cons 12/23/21 10:00 Active House Regular Diet Diet 12/23/21 Lunch Active ABDOMEN AND PELVIS W/0 CONTRAS [CT] Stat Exams 12/22/21 22:27 Completed ABDOMINAL-LIMITED [US] Urgent Exams 12/23/21 12:54 Completed Alcohol [ETHYL ALCOHOL] AM.LAB Lab 12/24/21 04:00 Ordered BLOOD COMPONENT REQUEST Urgent Lab 12/23/21 12:55 Completed CBC AM.LAB Lab 12/24/21 04:00 Ordered CBC W DIFF AM.LAB Lab 12/23/21 04:58 Completed CBC W DIFF Stat Lab 12/22/21 22:58 Completed CMP AM.LAB Lab 12/23/21 04:58 Completed CMP AM.LAB Lab 12/24/21 04:00 Ordered CMP Stat Lab 12/22/21 22:58 Completed COVID/FLU/RSV Panel Stat Lab 12/22/21 23:00 Completed CULTURE,URINE Stat Lab 12/23/21 01:11 Received ETHYL ALCOHOL Stat Lab 12/22/21 22:58 Completed LIPASE Stat Lab 12/22/21 22:58 Completed Manual Differential NC Routine Lab 12/23/21 04:58 Completed TROPONIN Q4H Lab 12/22/21 22:58 Completed TROPONIN Q4H Lab 12/23/21 04:58 Completed TYPE AND SCREEN Urgent Lab 12/23/21 12:55 Completed UA W/RFX CULTURE Stat Lab 12/23/21 01:11 Completed Amlodipine Besylate 5 mg [[facility] 5 mg] Med 12/23/21 10:00 Active 10 mg PO DAILY Lorazepam 2 mg/1 ml [Ativan 2 MG/1 ML VIAL] Med 12/23/21 02:05 Active 1 mg IV Q4H PRN PRN Morphine Sulfate 2 mg Inj Med 12/22/21 22:32 Discontinued 2 mg .ROUTE .STK-MED ONE Morphine Sulfate 2 mg Inj Med 12/23/21 02:00 Active 2 mg IV Q4H PRN PRN Morphine Sulfate 2 mg Inj Med 12/22/21 22:26 Discontinued 2 mg IV STAT ONE NaCl 0.9% 1000 ml [Sodium Chloride 0.9% 1000 ML] 1,000 Med 12/22/21 22:32 Discontinued ml .ROUTE UD NaCl 0.9% 1000 ml [Sodium Chloride 0.9% 1000 ML] 1,000 Med 12/22/21 22:30 Discontinued ml IV 100 mls/hr NaCl 0.9% 500 ml [Sodium Chloride 0.9% 500 ML] 500 ml Med 12/23/21 14:00 Active IV 50 mls/hr Ondansetron HCl 4 mg/2 ml [Zofran 4 MG/2 ML VIAL] Med 12/22/21 22:32 Discontinued 4 mg .ROUTE .STK-MED ONE Ondansetron HCl 4 mg/2 ml [Zofran 4 MG/2 ML VIAL] Med 12/23/21 02:00 Active 4 mg IV Q6H PRN PRN Ondansetron HCl 4 mg/2 ml [Zofran 4 MG/2 ML VIAL] Med 12/22/21 22:31 Discontinued 4 mg IV STAT ONE Ondansetron ODT 4 MG [Zofran Odt 4 mg] Med 12/22/21 22:26 Discontinued 4 mg PO STAT ONE PANTOPRAZOLE 40 mg Tablet [Protonix 40MG Tablet] Med 12/23/21 10:00 Active 40 mg PO DAILY Spironolactone 25 mg [Aldactone 25 MG] Med 12/23/21 10:00 Active 25 mg PO DAILY Smoking Cessation Education ONCE RT 12/23/21 03:00 Completed Transfer Order Routine Transfer 12/23/21 Completed Patient Care Notes (Last 24 hours) 12/23/21 14:41 Nursing Note by JORGE ALBERTO GARCIA DR.'S OFFICE CALLED TO SCHEDULE FOLLOW-UP APPT. OFFICE HAS NO SOONER APPOINTMENT THEN HIS ALREADY SCHEDULED ON 03/02/22 AT 0840. Initialized on 12/23/21 14:41 - END OF NOTE 12/23/21 12:15 Nursing Note by Jenny Evangelista I faxed consent to obtain medical records on patient from [facility]. They faxed a report back. Initialized on 12/23/21 12:15 - END OF NOTE 12/23/21 11:30 (created 12/23/21 14:43) Nursing Note by JORGE ALBERTO GARCIA RECORDS RECEIVED FROM [facility]. PLACED ON CHART FOR DR. ABDALLA TO REVIEW. Initialized on 12/23/21 14:43 - END OF NOTE 12/23/21 05:36 Nursing Note by Radha Colón This nurse contacted Dr. Abdalla at 0535 on 12/23/21 and notified him of patient's hgb 6.7 which is down from 7.9 on admission. No new orders at this time. Initialized on 12/23/21 05:36 - END OF NOTE (2) Liver cirrhosis Current Visit: Yes Status: Acute Qualifiers: Hepatic cirrhosis type: alcoholic cirrhosis
[2021-12-23 23:20] LABS: Hematocrit 32.9 % (42-50)
[2021-12-23 23:23] LABS: Hemoglobin 10.4 g/dL (12.5-18.0)
[2021-12-24 05:26] LABS: Hematocrit 32.1 % (42-50); Hemoglobin 10.2 g/dL (12.5-18.0); Mean Cell Volume 84.3 fL (78-100); Mean Corpuscular Hemoglobin 26.8 pg (26-32); Mean Corpuscular Hgb Concent. 31.8 g/dL (32-36); Mean Platelet Volume 10.3 fL (7.5-11.0); Platelet Count 155 x10^3/uL (150-450); Red Blood Count 3.81 x10^6/uL (4.1-5.6); Red Cell Distribution Width 20.3 % (11.5-14.0); White Blood Count 6.8 x10^3/uL (4.0-10.5)
[2021-12-24 05:58] LABS: ALBUMIN 3.1 g/dL (3.5-5.0); ALKALINE PHOSPHATASE 370 U/L (38-126); ANION GAP 10.4 MEQ/L (5-15); BLOOD UREA NITROGEN 9 mg/dL (9-20); CHLORIDE 99 mmol/L (98-107); Calcium 8.3 mg/dL (8.4-10.2); Carbon Dioxide 27 mmol/L (22-30); Creatinine 1 0.94 mg/dL (0.66-1.25); EST GLOMERULAR FILTRATION RATE > 60.0 ML/MIN; ETHYL ALCOHOL < 10 mg/dL (0-10); Glucose 87 mg/dL (74-106); Potassium 3.8 mmol/L (3.5-5.1); SGOT/AST 66 U/L (17-59); SGPT/ALT 15 U/L (0-50); SODIUM 133 mmol/L (137-145); Total Protein 6.6 g/dL (6.3-8.2)
[2021-12-24] MEDS: Sodium Chloride 0.9% 500 ML 500 ML IV SCH (08:38)
[2021-12-24] MEDS: Protonix 40MG Tablet PO SCH (09:39)
[2021-12-24] MEDS: Aldactone 25 MG PO SCH (09:39)
[2021-12-24] MEDS: NORVASC 5 MG PO SCH (09:39)
--- NOTE | 2021-12-24 12:47 | PCM.DS ---
Discharge Summary Date of Admission: 12/23/21 01:51 Admitting Physician: PAT ABDALLA Primary Care Provider: LITA HAYES Allergies Allergies lisinopril Allergy (Severe, Verified 12/23/21 02:06) Swelling Penicillins Allergy (Severe, Verified 12/23/21 02:06) Swelling Hospital Summary - Hospital Course Hospital Course: Chief Complaint Diagnosis abdominal distension for 2-3 days Allergies Allergy/AdvReac Type Severity Reaction Status Date / Time lisinopril Allergy Severe Swelling Verified 12/23/21 02:06 Penicillins Allergy Severe Swelling Verified 12/23/21 02:06 Vital Signs (Last 24 hours) Temp Pulse Resp BP Pulse Ox 12/24/21 08:00 97.9 F 75 21 117/76 97 12/24/21 00:17 98.0 F 69 16 123/73 96 12/23/21 21:00 97.5 F 73 18 119/68 98 12/23/21 16:06 98.0 F 93 H 122/72 12/23/21 13:00 98.7 F 91 H 16 124/70 98 Home Medications Medication Instructions Recorded Confirmed Last Taken Type PANTOPRAZOLE 40 mg Tablet 40 mg PO DAILY 12/23/21 12/23/21 12/21/21 10:00 History [Protonix 40MG Tablet] Spironolactone 25 mg [Aldactone 25 mg PO DAILY 12/23/21 12/23/21 12/21/21 10:00 History 25 MG] Current Medications Generic Name Dose Route Start Last Admin Trade Name Freq PRN Reason Stop Dose Admin Amlodipine Besylate 10 mg 12/23/21 10:00 12/24/21 09:39 Amlodipine Besylate 5 Mg Tablet PO 01/22/22 09:59 10 mg DAILY DASHA Administration Lorazepam 1 mg 12/23/21 02:05 Lorazepam 2 Mg/1 Ml 2 Mg Vial IV 01/22/22 02:04 Q4H PRN PRN ANXIETY/AGITATION Morphine Sulfate 2 mg 12/23/21 02:00 12/23/21 18:27 Morphine Sulfate 2 Mg/Ml Inj IV 12/28/21 01:59 2 mg Q4H PRN PRN Administration PAIN Ondansetron HCl 4 mg 12/23/21 02:00 Ondansetron Hcl 4 Mg/2 Ml Vial IV 01/22/22 01:59 Q6H PRN PRN NAUSEA/VOMITING Pantoprazole Sodium 40 mg 12/23/21 10:00 12/24/21 09:39 Protonix (Pantoprazole) 40 Mg Tablet PO 01/22/22 09:59 40 mg DAILY DASHA Administration Spironolactone 25 mg 12/23/21 10:00 12/24/21 09:39 Spironolactone 25 Mg Tablet PO 01/22/22 09:59 25 mg DAILY DASHA Administration Discontinued Medications Generic Name Dose Route Start Last Admin Trade Name Freq PRN Reason Stop Dose Admin Sodium Chloride 1,000 mls @ 100 mls/hr 12/22/21 22:30 12/22/21 22:35 Sodium Chloride 0.9% 1000 Ml IV 01/21/22 22:29 100 mls/hr .Q10H DASHA Administration Sodium Chloride Confirm 12/22/21 22:32 Sodium Chloride 0.9% 1000 Ml Administered 12/22/21 22:33 Dose 1,000 mls @ ud .ROUTE .STK-MED ONE Sodium Chloride 500 mls @ 50 mls/hr 12/23/21 14:00 12/24/21 08:38 Sodium Chloride 0.9% 500 Ml IV 01/22/22 13:59 Not Given .Q10H DASHA Morphine Sulfate 2 mg 12/22/21 22:26 12/22/21 22:35 Morphine Sulfate 2 Mg/Ml Inj IV 12/22/21 22:27 2 mg STAT ONE Administration Morphine Sulfate Confirm 12/22/21 22:32 Morphine Sulfate 2 Mg/Ml Inj Administered 12/22/21 22:33 Dose 2 mg .ROUTE .STK-MED ONE Ondansetron HCl 4 mg 12/22/21 22:26 12/22/21 22:31 Zofran 4 Mg/Udtablet Orally Disintegrating PO 12/22/21 22:27 Not Given STAT ONE Ondansetron HCl 4 mg 12/22/21 22:31 12/22/21 22:35 Ondansetron Hcl 4 Mg/2 Ml Vial IV 12/22/21 22:32 4 mg STAT ONE Administration Ondansetron HCl Confirm 12/22/21 22:32 Ondansetron Hcl 4 Mg/2 Ml Vial Administered 12/22/21 22:33 Dose 4 mg .ROUTE .STK-MED ONE Intake & Output (Last 24 hours) 12/22/21 12/23/21 12/24/21 12/25/21 11:59 11:59 11:59 11:59 Intake Total 585 1240 Output Total 50 175 Balance 535 1065 Weight 51.1 kg 51.5 kg Microbiology Results (Last 24 hours) 12/23/21 01:11 Urine, Void Urine Culture - Final <10K NORMAL SKIN OBINNA PROBABLE SKIN CONTAMINANT Laboratory Results (Last 24 hours) 12/24/21 12/24/21 12/23/21 04:30 04:30 23:18 WBC 6.8 RBC 3.81 L Hgb 10.2 L Hct 32.1 L MCV 84.3 MCH 26.8 MCHC 31.8 L RDW 20.3 H Plt Count 155 MPV 10.3 Sodium 133 L Potassium 3.8 Chloride 99 Carbon Dioxide 27 Anion Gap 10.4 BUN 9 Creatinine 0.94 Estimated GFR > 60.0 Glucose 87 Calcium 8.3 L Total Bilirubin 1.20 AST 66 H ALT 15 Alkaline Phosphatase 370 H Serum Total Protein 6.6 Albumin 3.1 L Ethyl Alcohol < 10 < 10 ABO Group Rh Factor Antibody Screen Crossmatch 12/23/21 12/23/21 12/23/21 23:18 12:55 12:55 WBC RBC Hgb 10.4 L D Hct 32.9 L MCV MCH MCHC RDW Plt Count MPV Sodium Potassium Chloride Carbon Dioxide Anion Gap BUN Creatinine Estimated GFR Glucose Calcium Total Bilirubin AST ALT Alkaline Phosphatase Serum Total Protein Albumin Ethyl Alcohol ABO Group Rh Factor Antibody Screen Crossmatch COMPATIBLE COMPATIBLE 12/23/21 12:55 WBC RBC Hgb Hct MCV MCH MCHC RDW Plt Count MPV Sodium Potassium Chloride Carbon Dioxide Anion Gap BUN Creatinine Estimated GFR Glucose Calcium Total Bilirubin AST ALT Alkaline Phosphatase Serum Total Protein Albumin Ethyl Alcohol ABO Group O Rh Factor NEGATIVE Antibody Screen NEGATIVE Crossmatch Orders (Last 24 hours) Category Date Time Status Discharge Routine Discharge 12/24/21 Ordered ABDOMINAL-LIMITED [US] Urgent Exams 12/23/21 12:54 Completed Alcohol [ETHYL ALCOHOL] AM.LAB Lab 12/24/21 04:30 Completed Alcohol [ETHYL ALCOHOL] Routine Lab 12/23/21 23:18 Completed BLOOD COMPONENT REQUEST Urgent Lab 12/23/21 12:55 Completed CBC AM.LAB Lab 12/24/21 04:30 Completed CMP AM.LAB Lab 12/24/21 04:30 Completed HEMOGLOBIN AND HEMATOCRIT Routine Lab 12/23/21 23:18 Completed TYPE AND SCREEN Urgent Lab 12/23/21 12:55 Completed NaCl 0.9% 500 ml [Sodium Chloride 0.9% 500 ML] 500 ml Med 12/23/21 14:00 Discontinued IV 50 mls/hr Patient Care Notes (Last 24 hours) 12/24/21 09:39 Case Management Note by Chelle Hatfield S/W PATIENT- HE CONTINUES TO DENY ANY NEW NEEDS AT TIME OF DC. Initialized on 12/24/21 09:39 - END OF NOTE 12/23/21 14:41 Nursing Note by JORGE ALBERTO GARCIA DR.'S OFFICE CALLED TO SCHEDULE FOLLOW-UP APPT. OFFICE HAS NO SOONER APPOINTMENT THEN HIS ALREADY SCHEDULED ON 03/02/22 AT 0840. Initialized on 12/23/21 14:41 - END OF NOTE - Vitals & Intake/Output Vital Signs: Vital Signs Temperature 97.9 F 12/24/21 08:00 Pulse Rate 75 12/24/21 08:00 Respiratory Rate 21 12/24/21 08:00 Blood Pressure 117/76 12/24/21 08:00 O2 Sat by Pulse Oximetry 97 12/24/21 08:00 Intake & Output: Intake & Output 12/22/21 12/23/21 12/24/21 12/25/21 11:59 11:59 11:59 11:59 Intake Total 585 1240 Output Total 50 175 Balance 535 1065 Weight 51.1 kg 51.5 kg - Lab Result Diagrams: 12/24/21 04:30 12/24/21 04:30 Lab Results-Last 24 Hrs: Lab Results-Last 24 Hours 12/23/21 12/23/21 12/23/21 Range/Units 12:55 12:55 12:55 WBC (4.0-10.5) x10^3/uL RBC (4.1-5.6) x10^6/uL Hgb (12.5-18.0) g/dL Hct (42-50) % MCV (78-100) fL MCH (26-32) pg MCHC (32-36) g/dL RDW (11.5-14.0) % Plt Count (150-450) x10^3/uL MPV (7.5-11.0) fL Sodium (137-145) mmol/L Potassium (3.5-5.1) mmol/L Chloride (98-107) mmol/L Carbon Dioxide (22-30) mmol/L Anion Gap (5-15) MEQ/L BUN (9-20) mg/dL Creatinine (0.66-1.25) mg/dL Estimated GFR ML/MIN Glucose (74-106) mg/dL Calcium (8.4-10.2) mg/dL Total Bilirubin (0.2-1.3) mg/dL AST (17-59) U/L ALT (0-50) U/L Alkaline Phosphatase (38-126) U/L Serum Total Protein (6.3-8.2) g/dL Albumin (3.5-5.0) g/dL Ethyl Alcohol (0-10) mg/dL ABO Group O Rh Factor NEGATIVE Antibody Screen NEGATIVE (NEGATIVE) Crossmatch COMPATIBLE COMPATIBLE (COMPATIBLE) 12/23/21 12/23/21 12/24/21 Range/Units 23:18 23:18 04:30 WBC 6.8 (4.0-10.5) x10^3/uL RBC 3.81 L (4.1-5.6) x10^6/uL Hgb 10.4 L D 10.2 L (12.5-18.0) g/dL Hct 32.9 L 32.1 L (42-50) % MCV 84.3 (78-100) fL MCH 26.8 (26-32) pg MCHC 31.8 L (32-36) g/dL RDW 20.3 H (11.5-14.0) % Plt Count 155 (150-450) x10^3/uL MPV 10.3 (7.5-11.0) fL Sodium (137-145) mmol/L Potassium (3.5-5.1) mmol/L Chloride (98-107) mmol/L Carbon Dioxide (22-30) mmol/L Anion Gap (5-15) MEQ/L BUN (9-20) mg/dL Creatinine (0.66-1.25) mg/dL Estimated GFR ML/MIN Glucose (74-106) mg/dL Calcium (8.4-10.2) mg/dL Total Bilirubin (0.2-1.3) mg/dL AST (17-59) U/L ALT (0-50) U/L Alkaline Phosphatase (38-126) U/L Serum Total Protein (6.3-8.2) g/dL Albumin (3.5-5.0) g/dL Ethyl Alcohol < 10 (0-10) mg/dL ABO Group Rh Factor Antibody Screen (NEGATIVE) Crossmatch (COMPATIBLE) 12/24/21 Range/Units 04:30 WBC (4.0-10.5) x10^3/uL RBC (4.1-5.6) x10^6/uL Hgb (12.5-18.0) g/dL Hct (42-50) % MCV (78-100) fL MCH (26-32) pg MCHC (32-36) g/dL RDW (11.5-14.0) % Plt Count (150-450) x10^3/uL MPV (7.5-11.0) fL Sodium 133 L (137-145) mmol/L Potassium 3.8 (3.5-5.1) mmol/L Chloride 99 (98-107) mmol/L Carbon Dioxide 27 (22-30) mmol/L Anion Gap 10.4 (5-15) MEQ/L BUN 9 (9-20) mg/dL Creatinine 0.94 (0.66-1.25) mg/dL Estimated GFR > 60.0 ML/MIN Glucose 87 (74-106) mg/dL Calcium 8.3 L (8.4-10.2) mg/dL Total Bilirubin 1.20 (0.2-1.3) mg/dL AST 66 H (17-59) U/L ALT 15 (0-50) U/L Alkaline Phosphatase 370 H (38-126) U/L Serum Total Protein 6.6 (6.3-8.2) g/dL Albumin 3.1 L (3.5-5.0) g/dL Ethyl Alcohol < 10 (0-10) mg/dL ABO Group Rh Factor Antibody Screen (NEGATIVE) Crossmatch (COMPATIBLE) Micro Results-Entire Visit: Microbiology 12/23/21 01:11 Urine Culture - Final Urine, Void <10K NORMAL SKIN OBINNA PROBABLE SKIN CONTAMINANT - Radiology Exams Ordered Rad Exams-Entire Visit: Radiology Procedures Category Date Time Status ABDOMEN AND PELVIS W/0 CONTRAS [CT] Stat Exams 12/22/21 22:27 Completed ABDOMINAL-LIMITED [US] Urgent Exams 12/23/21 12:54 Completed - Procedures and Test Procedures and Tests throughout Hospitalization: Therapy Orders & Screens 12/23/21 03:00 Smoking Cessation Education ONCE Comment: Diagnosis: Cirrhosis of the liver, ascites Smoking Status: Current every day smoker How long have you smoked: 50 years Approximately how many cigarettes per day: 20 Do you dip or chew tobacco: No Discharge Exam General Appearance: no apparent distress, alert Neurologic Exam: alert, oriented x 3, cooperative, normal mood/affect, nml cerebellar function, sensation nml, No motor deficits Eye Exam: PERRL, EOMI, eyes nml inspection Ears, Nose, Throat Exam: normal ENT inspection, pharynx normal, moist mucous membranes Neck Exam: normal inspection, non-tender, supple, full range of motion Respiratory Exam: normal breath sounds, lungs clear, No respiratory distress Cardiovascular Exam: regular rate/rhythm, normal heart sounds Gastrointestinal/Abdomen Exam: soft, No tenderness, No mass Male Genitalia Exam: deferred Rectal Exam: deferred Back Exam: normal inspection, normal range of motion, No CVA tenderness, No vertebral tenderness Extremity Exam: normal inspection, normal range of motion Skin Exam: normal color, warm, dry Final Diagnosis/Problem List - Final Discharge Diagnosis/Problem (1) Alcohol intoxication Current Visit: Yes Status: Resolved (2) Liver cirrhosis Current Visit: Yes Status: Chronic (3) Abdominal ascites Current Visit: Yes Status: Chronic Code(s): R18.8 - OTHER ASCITES (4) Peripheral arterial disease Current Visit: Yes Status: Chronic Code(s): I73.9 - PERIPHERAL VASCULAR DISEASE, UNSPECIFIED (5) UTI (urinary tract infection) Current Visit: Yes Status: Resolved Code(s): N39.0 - URINARY TRACT INFECT ION, SITE NOT SPECIFIED (6) Atrial fibrillation and flutter Current Visit: Yes Status: Chronic Code(s): I48.91 - UNSPECIFIED ATRIAL FIBRILLATION; I48.92 - UNSPECIFIED ATRIAL FLUTTER - Discharge Discharge Date: 12/24/21 Disposition: Home, Self-Care Condition: Stable Prescriptions: Continue Rivaroxaban [Xarelto] 2.5 mg PO DAILY Amlodipine Besylate 10 mg PO DAILY PANTOPRAZOLE 40 mg Tablet [Protonix 40MG Tablet] 40 mg PO DAILY Spironolactone 25 mg [Aldactone 25 MG] 25 mg PO DAILY Instructions: Cirrhosis (DC), Alcohol Use Disorder (DC) Additional Instructions: A REFERRAL WAS SENT TO [facility] TO SEE IF THEY CAN ASSIST WITH FOOD STAMPS OR HOME DELIVERED MEALS. THEY WILL REACH OUT TO TALK WITH YOU. THEIR PHONE NUMBER IS [phone] Follow up with: LITA HAYES NP [Primary Care Provider] - 01/01/22 10:00 am MAGGIE HAWKINS MD [NON-STAFF PHY W/O PRIVILEGES] - 03/02/22 8:40 am (KEEP YOUR FOLLOW-UP APPOINTMENT WITH MICHELLE TOTH) Forms: Discharge Instructions
[2021-12-24 12:59] VITALS: BP 133/81; PULSE 93; O2SAT 99
== END 2021-12-24 11:58 | disposition home or self-care (01) ==
LOC: ED 22:15 → MED SURG 12-23 01:51
PROVIDERS: ADMIT General Practice; ATTEND General Practice
DX: F10.920 Alcohol use, unspecified with intoxication, uncomplicated (principal); K74.60 Unspecified cirrhosis of liver; R18.8 Other ascites; I73.9 Peripheral vascular disease, unspecified; N39.0 Urinary tract infection, site not specified; I48.91 Unspecified atrial fibrillation; I48.92 Unspecified atrial flutter; Z79.899 Other long term (current) drug therapy
CPT/HCPCS: 0241U; 36000; 36415; 36430; 74176; 76705; 80053; 81015; 83690; 84484; 85014; 85018; 85025; 85027; 86850; 86900; 86901; 86922; 87086; 96374; 96375; 99285; G0378; G0480; P9016; 80307; J2270; J2405; A9270-GY

== ENCOUNTER 2022-09-17 00:33 | Emergency (ER) | payer MEDICARE | END 2022-09-17 01:57 | disposition left against medical advice (07) | LOC: ED 00:33 | DX: Z53.21 Procedure and treatment not carried out due to patient leaving prior to being seen by health care provider (principal) | CPT/HCPCS: 99281 ==